=== PATIENT | female | born 1980 | race African-American/Black ===

== ENCOUNTER 2020-04-14 00:57 | Outpatient (CLI) | payer BC, SELFPAY ==
[2020-04-14 19:18] LABS: SARS-CoV-2 RNA PCR Negative
== END 2020-04-14 00:58 | disposition home or self-care (01) ==
LOC: ANHCOVIDDT 00:57
PROVIDERS: Visit Provider Obstetrics & Gynecology
DX: Z01.812 Encounter for preprocedural laboratory examination (principal); Z20.828 Contact with and (suspected) exposure to other viral communicable diseases
CPT/HCPCS: 87635; C9803; U0003

== ENCOUNTER → 2020-04-17 01:38 | Day surgery (SDC) | payer BC, SELFPAY ==
[2020-04-11 09:22] VITALS: BMI 28.9
--- NOTE | 2020-04-14 08:24 | PM.IMHP ---
H&P: HPI History of Present Illness Date/Time: 04/14/20 08:24 Chief complaint: ovarian cyst, pelvic pain Narrative: Cynthia Montoya is a 39 year old female with RLQ pain, Aleve does help. She has ovarian cyst which has not resolved with OCP and wants surgical removal. Review of Systems Review of Systems: All systems reviewed & are unremarkable except as noted in HPI and below PMFSH Past Medical History Medical History Ovarian cyst Surgical History Surgical History H/O breast augmentation History of bilateral tubal ligation History of bowel resection Previous section X3 Family History Family History Grandparent Carcinoma of colon Social History Social History Smoking status: Never smoker Alcohol intake: current Drinks per week: 3 Spiritual care concerns: No Meds Home Medications and Allergies Home Medications Medication Instructions Recorded Confirmed Type L norgest/e.estradiol-e.estrad 1 tablet PO DAILY 03/01/20 04/11/20 History 0.10 mg-20 mcg (84)/10 mcg(7) tabs,3mos biotin 1 mg capsule 1 mg PO DAILY 03/01/20 04/11/20 History melatonin 3 mg capsule 3 mg PO HS PRN 03/01/20 04/11/20 History topiramate 25 mg capsule,extended 25 mg PO DAILY 03/01/20 04/11/20 History release 24 hr Elderberry Gummy 1 ea PO DAILY 04/11/20 History ascorbic acid (vitamin C) [Vitamin 250 mg PO DAILY 04/11/20 04/11/20 History C] Allergies Allergy/AdvReac Type Severity Reaction Status Date / Time No Known Allergies Allergy Verified 04/11/20 09:23 Exam Const: General: no acute distress Resp: Auscultation: clear to auscultation bilaterally Cardio: Rate: regular rate Rhythm: regular rhythm GI: Inspection: non-distended GI Palp: Yes Soft to palpation and No Tenderness to palpation present (GI) : External Female Exam: normal external appearance Speculum Exam - Vagina: normal appearance of the vagina Speculum Exam - Cervix: normal appearance of the cervix Bimanual exam- vagina & uterus: uterine size normal, consistency normal, uterine shape normal, non-tender and no cervical motion tenderness Bimanual Exam- Adnexa, other: tender on the right Extrem: General: no edema Psych: Mental Status: mental status grossly normal Assessment and Plan Assessment and plan (1) Right ovarian cyst: Code(s): N83.201 - Unspecified ovarian cyst, right side Status: Acute Assessment and Plan: She signed consent after R/B/C/A discussed for L/S right ovarian cystectomy, possible right oophorectomy, possible laparotomy. She is aware of increased risk of needing larger incision as well as injury to surrounding organs due to h/o multiple abdominal surgeries on bowels including bowel resection prior to age 1. She wishes to proceed (2) Pelvic pain: Code(s): R10.2 - Pelvic and perineal pain Status: Acute
[2020-04-17] VITALS (9 sets, daily range): BP systolic 110–128; BP diastolic 55–77; PULSE 48–84; RESP 12–18; TEMP 36.7–36.8; O2SAT 96–100
[2020-04-17] MEDS: ACETAMINOPHEN 500 MG TABLET 1000 MG PO (10:20)
[2020-04-17] MEDS: LACTATED RINGERS 1,000 ML 30 ML IV CONT ×2 (10:38→13:24)
[2020-04-17] MEDS: KETOROLAC 15 MG/ML VIAL (*BKC) IV PUSH (10:39)
--- NOTE | 2020-04-17 11:09 | P.PNAN_ITS ---
Anes - Initial Pre Proc Eval Procedure: Operation Date: 04/17/20 12:00 Proposed Procedures p Laparoscopic Right Ovarian Cystectomy, Possible Right Oophorectomy, Possible Laparotomy - Shelley Anguiano MD Date/Time: 04/17/20 11:09 Surgeon: Shelley Anguiano MD Pre Op Diagnosis: ovarian cyst, pelvic pain Patient Data Age: 39 Gender: F Height: 5 ft 2 in Weight: 72.3 kg Last Vital Signs Temp 36.8 C 04/17/20 10:15 Pulse 66 04/17/20 10:15 Resp 16 04/17/20 10:15 BP 120/72 04/17/20 10:15 Pulse Ox 100 04/17/20 10:15 Allergies Allergy/AdvReac Type Severity Reaction Status Date / Time No Known Allergies Allergy Verified 04/17/20 10:13 Home Medications Medication Instructions Recorded Confirmed Type L norgest/e.estradiol-e.estrad 1 tablet PO DAILY 03/01/20 04/17/20 History 0.10 mg-20 mcg (84)/10 mcg(7) tabs,3mos biotin 1 mg capsule 1 mg PO DAILY 03/01/20 04/17/20 History melatonin 3 mg capsule 3 mg PO HS PRN 03/01/20 04/17/20 History topiramate 25 mg capsule,extended 25 mg PO DAILY 03/01/20 04/17/20 History release 24 hr Elderberry Gummy 1 ea PO DAILY 04/11/20 04/17/20 History ascorbic acid (vitamin C) [Vitamin 250 mg PO DAILY 04/11/20 04/17/20 History C] Patient hx anesthesia problems: none Family hx anesthesia problems: none PMFSH Past Medical History Medical History Anxiety Ovarian cyst Surgical History Surgical History H/O breast augmentation History of bilateral tubal ligation History of bowel resection Previous section X3 Family History Family History Grandparent Carcinoma of colon Social History Social History Smoking status: Never smoker Alcohol intake: current Drinks per week: 3 Spiritual care concerns: No Anes - Eval Final PreProcedure Day of Procedure 04/17/20 11:09 Patient weight: overweight Heart: regular rate and rhythm Lungs: clear to auscultation Airway: Mallampati scale class II Neurological: alert and oriented Last oral intake: >/= 8 hours ASA classification: II Emergent: no Anesthetic plan: proceed Anesthesia type and monitoring: general ETT and standard monitoring Informed Consent: The patient's anesthetic plan and its attendant risks and be nefits were discussed with the patient/family/POA. Questions were solicited and answers provided to the satisfaction of the patient/family/POA.
--- NOTE | 2020-04-17 11:30 | SUR.PREOP ---
Resting without needs or complaints.
--- NOTE | 2020-04-17 11:58 | WPDHPUPDATE1 ---
History and Physical Update Update Date/Time: 04/17/20 11:58 History and Physical has been reviewed, including an updated exam of the patient. There are NO changes in the patient's condition. Risks, benefits, and alternatives have been discussed and questions answered. Patient agrees to proceed with procedure.
--- NOTE | 2020-04-17 12:09 | P.OP_ITS ---
Procedure Note - Detailed Date of procedure: 04/17/20 Pre-op diagnosis: ovarian cyst, pelvic pain Post-op diagnosis: other (Pelvic pain, peritoneal inclusion cyst) Procedure performed: Diagnostic laparoscopy with lysis of adhesions Description of procedure: For the procedure she was taken to the operating room where general anesthesia was obtained. She was prepared and draped in the normal sterile fashion in dorsal lithotomy position. Marcaine was injected infraumbilically and a 5 mm skin incision was made in the infraumbilical fold with a scalpel. 5 mm non bladed trocar was then placed with the camera in the trocar under direct visualization into the peritoneal cavity. Insufflation was begun and she was placed in Trendelenburg. Inspection of the pelvis revealed findings as noted below. There were multiple dense adhesions involving the bowel. There were a few areas that looked more filmy so decision was made to proceed with lysis of adhesions in order to obtain better visualization. Another 5 mm trocar was placed in the right lower quadrant under direct visualization. First a laparoscopic scissor was used and then the Harmonic scalpel to remove adhesions between the loops of bowel in the anterior abdominal wall taking care to stay in areas that were filmy and able to be seen through. The uterus was adherent to the anterior abdominal wall. The left fallopian tube and ovary were both easily visualized and appeared to be normal. Extensive lysis of adhesions was done in the right adnexal area. There was a large pocket of serous fluid likely accounting for the adnexal cyst seen on imaging. The serous fluid was suctioned using the suction dielectric press operator. The right ovary was partially visualized. The visible portion did appear normal and the overall size was normal as well. Once I was convinced that she has no significant ovarian cyst the pelvis was copiously irrigated. All operative sites were noted to be hemostatic. The pneumoperitoneum was allowed to escape. Both trocars were removed. Both skin incisions were closed using 4 0 Monocryl in subcuticular fashion. She tolerated the procedure well. Sponge lap needle and instrument counts were correct x2. She was taken to the recovery room in stable condition. Anesthesia: EDVINA Surgeon: Shelley Anguiano MD Estimated blood loss (mL): 5 Drains: No Packing: No Pathology: none sent Complications: No immediate complications Condition: stable Disposition: PACU Findings: Normal left ovary, fallopian tubes, uterus; right ovary not visualized 100% but normal in size and the portion visible appeared normal; extensive adhesions of bowels to each other and to abdominal wall. Large pocket of serous fluid in right adnexa between adhesions. Appendix, liver, and gall bladder not visualized.
[2020-04-17] MEDS: BUPIVACAINE/EPINEPHRINE 0.5% 30 ML VIAL INFILTRATE (12:56)
== END | disposition home or self-care (01) ==
PROVIDERS: Visit Provider Obstetrics & Gynecology
PROC: (CPT 49320; principal; 2020-04-17 12:00)
DX: N83.201 Unspecified ovarian cyst, right side (principal); R10.2 Pelvic and perineal pain; K66.0 Peritoneal adhesions (postprocedural) (postinfection)
CPT/HCPCS: 58660; A9270; J0330; J1100; J1885; J2250; J2405; J2704; J2710; J3010; J7030; J7120

== ENCOUNTER → 2021-02-06 01:09 | Outpatient (CLI) | payer BC, SELFPAY ==
[2021-02-06 17:24] LABS: SARS-CoV-2 RNA PCR Negative
== END ==
PROVIDERS: Visit Provider Student in an Organized Health Care Education/Training Program
DX: Z01.812 Encounter for preprocedural laboratory examination (principal); Z20.822 Contact with and (suspected) exposure to COVID-19
CPT/HCPCS: C9803; U0003; U0005

== ENCOUNTER 2021-02-09 00:43 | Day surgery (SDC) | payer BC, SELFPAY ==
[2021-01-30 11:30] VITALS: BMI 29.2
--- NOTE | 2021-02-09 05:44 | PM.IMHP ---
H&P: HPI History of Present Illness Date/Time: 02/09/21 05:44 Patient is a 40 year old woman with a prior history of irregular menses and menorrhagia. She was started on combined OCPs for cycle regulation and has done well on pills. Patient, however, was diagnosed with left portal vein thrombosis and was advised to discontinue combined hormonal regulation. Alternative management options were discussed with patient, including progesterone only methods as well as surgical options, and patient would like to proceed with an endometrial ablation as next step in further management. She reports feeling well today without complaints. Chief Complaint: Irregular menses Menorrhagia Review of Systems Review of Systems: All systems reviewed & are unremarkable except as noted in HPI and below Constitutional: Constitutional: Reports as per HPI, Reports no additional constitutional complaints, Denies chills, Denies fever(s), Denies headache(s) and Denies night sweats Eyes: Eyes: Reports as per HPI and Reports no additional eye complaints ENT: Reports system reviewed and no additional complaints, except as documented, Reports as per HPI, Reports Normal hearing present and Denies headache(s) Cardiovascular: Cardiovascular: Reports as per HPI, Reports no additional cardiovascular complaints, Denies chest pain and Denies dyspnea Respiratory: Respiratory: Reports as per HPI, Reports no additional respiratory complaints, Denies cough and Denies dyspnea Gastrointestinal: Gastrointestinal: Reports as per HPI, Reports no additional gastrointestinal complaints, Denies abdominal pain, Denies change in bowel habits, Denies change in stool character, Denies nausea and Denies vomiting Genitourinary: Genitourinary: Reports no additional female genitourinary complaints, Reports as per HPI, Denies abnormal vaginal bleeding, Denies genital lesions, Denies hot flashes, Denies dyspareunia, Denies pelvic pain, Denies sexual dysfunction, Denies urinary incontinence, Denies vaginal discharge, Denies vaginal dryness and Denies vaginal odor Musculoskeletal: Musculoskeletal: Reports no additional musculoskeletal complaints and Reports as per HPI Integumentary/Breasts: Skin/Breast: Reports system reviewed and no additional complaints, except as docu, Reports as per HPI, Denies breast pain and Denies nipple discharge Neurologic: Reports system reviewed and no additional complaints, except as documented, Reports as per HPI, Reports Normal hearing present and Denies headache(s) Psychiatric: Psychiatric: Reports no additional psychiatric complaints, Reports as per HPI, Denies anxiety and Denies depression Endocrine: Endocrine: Reports no additional endocrine complaints and Reports as per HPI Hematologic/Lymphatic: Hematologic/Lymphatic: Reports no additional hematologic/lymphatic complaints and Reports as per HPI Allergic/Immunologic: Allergic/Immunologic: Reports no additional allergic/immunologic complaints and Reports as per HPI PMF Past Medical History Medical History Anxiety Ovarian cyst Portal vein thrombosis Thrombosis Surgical History Surgical History H/O breast augmentation History of bilateral tubal ligation History of bowel resection Previous section X3 S/P laparoscopic procedure Family History Family History Grandparent Carcinoma of colon Social History Social History Smoking status: Never smoker Alcohol intake: current Drinks per week: 3 Alcohol use details: 3/MONTH Substance use: never Substance use type: does not use Living arrangements: with family Additional living arrangements comments: CHILDREN Spiritual care concerns: No Meds Home Medications and Allergies Home Medications Medication Instructions
[2021-02-09 06:54] VITALS: BP 123/86; PULSE 67; RESP 18; TEMP 36.1; O2SAT 100
[2021-02-09] MEDS: LACTATED RINGERS 1,000 ML 30 ML IV CONT (07:00)
[2021-02-09] MEDS: ACETAMINOPHEN 500 MG TABLET 1000 MG PO (07:08)
--- NOTE | 2021-02-09 07:08 | WPDANESEPPF ---
Anes - Initial Pre Proc Eval Procedure: Operation Date: 02/09/21 07:30 Proposed Procedures p Hysteroscopy Dilation and Curettage With Johanne Ablation - Sachi Oliver MD Date/Time: 02/09/21 07:08 Surgeon: Sachi Oliver MD Pre Op Diagnosis: menorrhagia Patient Data Age: 40 Gender: F Height: 5 ft 2 in Weight: 72.25 kg Last Vital Signs Temp 97.0 F L 02/09/21 06:54 Pulse 67 02/09/21 06:54 Resp 18 02/09/21 06:54 BP 123/86 02/09/21 06:54 Pulse Ox 100 02/09/21 06:54 Allergies Allergy/AdvReac Type Severity Reaction Status Date / Time No Known Allergies Allergy Verified 02/09/21 06:57 Home Medications Medication Instructions Recorded Confirmed Type melatonin 3 mg capsule 3 mg PO HS PRN 03/01/20 01/30/21 History ibuprofen 600 mg PO Q6H PRN #60 tablet 04/17/20 01/30/21 Rx multivitamin with minerals 1 tablet PO DAILY 01/02/21 01/30/21 History drospirenone (contraceptive) 4 mg PO HS 01/30/21 01/30/21 History [Slynd] Patient hx anesthesia problems: none Family hx anesthesia problems: none PMFSH Past Medical History Medical History Anxiety Ovarian cyst Portal vein thrombosis Thrombosis Surgical History Surgical History H/O breast augmentation History of bilateral tubal ligation History of bowel resection Previous section X3 S/P laparoscopic procedure Family History Family History Grandparent Carcinoma of colon Social History Social History Smoking status: Never smoker Alcohol intake: current Drinks per week: 3 Alcohol use details: 3/MONTH Substance use: never Substance use type: does not use Living arrangements: with family Additional living arrangements comments: CHILDREN Spiritual care concerns: No Anes - Eval Final PreProcedure Day of Procedure 02/09/21 07:08 Patient weight: overweight Heart: regular rate and rhythm Lungs: clear to auscultation Airway: Mallampati scale class II Neurological: alert and oriented Last oral intake: >/= 8 hours ASA classification: II Emergent: no Anesthetic plan: proceed Anesthesia type and monitoring: general GIVS and standard monitoring Informed Consent: The patient's anesthetic plan and its attendant risks and benefits were discussed with the patient/family/POA. Questions were solicited and answers provided to the satisfaction of the patient/family/POA.
--- NOTE | 2021-02-09 07:27 | WPDHPUPDATE1 ---
History and Physical Update Update Date/Time: 02/09/21 07:27 History and Physical has been reviewed, including an updated exam of the patient. There are NO changes in the patient's condition. Risks, benefits, and alternatives have been discussed and questions answered. Patient agrees to proceed with procedure.
[2021-02-09] MEDS: KETOROLAC 30 MG/ML VIAL (*BKC) IV PUSH (08:02)
[2021-02-09 08:11] VITALS: BP 102/69; PULSE 63; RESP 14; O2SAT 100
[2021-02-09 08:30] VITALS: BP 93/54; PULSE 48; RESP 20
--- NOTE | 2021-02-09 08:45 | W.PM.PROC2 ---
Procedure Note - Detailed Date of Procedure 02/09/21 Pre-op Diagnosis Irregular menses Menorrhagia Post-op Diagnosis same Procedure Performed Hysteroscopy Dilation and curettage Endometrial ablation with Johanne Surgeon Sachi Oliver MD Anesthesia MAC Findings Normal appearing endometrial cavity, scant endometrial tissue, bilateral tubal ostia seen Hysteroscopic fluid: 675cc in/ 490 cc out Description of Procedure The patient was taken to the operating room where she self-transferred to the operating room table. She was placed in dorsal supine position. Anesthesia was administered and found to be adequate. The patient was repositioned in dorsal lithotomy position with the use of Bennie stirrups. She was prepped and draped in usual sterile fashion. A red rubber catheter was used to drain the bladder of 100 cc of clear urine. A bivalve speculum was inserted into the vagina. The cervix was well visualized. The anterior lip of the cervix was grasped with a single-tooth tenaculum. A paracervical block was performed with 1% plain lidocaine. 5 cc of lidocaine was administered on either side for a total of 10 cc. The uterus was then sounded to 8.5 cm. The cervix was serially dilated to accommodate a hysteroscope. The hysteroscope was introduced into the endometrial cavity. A general survey was performed. Endometrial cavity appeared clear with virtually no tissue seen. Bilateral tubal ostia were visualized. A few pictures were taken. The hysteroscope was removed. A small-size rigid curette was used to perform a curettage. All quadrants of the endometrial cavity were explored. A minimal amount of tissue was obtained and prepared to be sent to pathology for analysis. The Johanne endometrial ablation device was then opened on the sterile field. The appropriate settings were input on the hand-held device and the array was introduced into the endometrial cavity and deployed. The cervical balloon was insufflated. An integrity check was completed and passed by the Johanne console. After the integrity check was passed successfully, the ablation procedure started automatically and ran for the preset time of 120 seconds. After completion of the ablation procedure, the array was collapsed and the cervical balloon was desufflated. The device was removed. The hysteroscope was reintroduced into the endometrial cavity and cavity appeared de with some charred residue noted. Hysteroscope was removed. The tenaculum was removed from the anterior lip of the cervix. No bleeding was seen from the tenaculum puncture sites. The remainder of the vagina was cleansed and dried and the speculum was removed. The patient was cleansed and dried and taken out of the dorsal lithotomy position. She was awakened from anesthesia without difficulty and transferred to the recovery room in stable condition. The patient tolerated the procedure well. All sponge, lap, and instrument counts were correct at the end of the procedure. Estimated Blood Loss 5 IV Fluids 300 Urine Output 100 Drains No Packing No Pathology yes (endometrial curettings) Complications No immediate complications Condition stable Disposition same day
[2021-02-09] MEDS: fentaNYL CITRATE INJ (*CRX) 100 MCG/2 ML VIAL 25 MCG IV PUSH ×2 (08:48→08:51)
[2021-02-09 09:00] VITALS: BP 103/64; PULSE 50
[2021-02-09] MEDS: oxyCODONE HCL (*CRX) 5 MG TAB IR PO (09:14)
[2021-02-09 09:30] VITALS: BP 104/63; PULSE 47; RESP 20
[2021-02-09 10:00] VITALS: BP 102/64; PULSE 52; RESP 20
== END 2021-02-09 10:10 | disposition home or self-care (01) ==
PROVIDERS: Visit Provider Student in an Organized Health Care Education/Training Program
PROC: 0U5B8ZZ Destruction of Endometrium, Via Natural or Artificial Opening Endoscopic (ICD-10-PCS; CPT 58563; principal; 2021-02-09 07:30)
DX: N92.1 Excessive and frequent menstruation with irregular cycle (principal); N85.8 Other specified noninflammatory disorders of uterus; F41.9 Anxiety disorder, unspecified
CPT/HCPCS: 58563; 88305; A9270; C9803; J1885; J2250; J2405; J2704; J3010; J7030; J7120; U0003; U0005

== ENCOUNTER 2021-11-16 08:44 | Outpatient (CLI) | payer BC, SELFPAY ==
--- NOTE | ~2021-11-16 | MM_ITS ---
EXAMINATION: MM scrn nadege implant BI w joni HISTORY: Screening mammogram TECHNIQUE: Craniocaudal and mediolateral oblique 3-D tomosynthesis images with implant displacement a nd synthetic 2-D images were generated. Craniocaudal and mediolateral oblique views of the breasts wi thout implant displacement were obtained using full field digital mammography. CAD analysis was submi tted and interpreted. COMPARISON: No prior mammogram is available for comparison at this institution. BREAST PARENCHYMAL COMPOSITION: There are scattered areas of fibroglandular density. FINDINGS: There is a benign-appearing mass in the upper outer quadrant of the left breast, consistent with intramammary lymph node. There is no evidence of suspicious mass, calcification, or architectur al distortion to suggest malignancy in either breast. There has been no suspicious interval change. IMPRESSION: 1. No mammographic evidence of malignancy. 2. Recommend routine screening mammography in one year. BI-RADS Category 1: Negative Reviewed, dictated and finalized at location A.
== END 2021-11-16 08:45 | disposition home or self-care (01) ==
LOC: ANHIMG 08:46
PROVIDERS: PCP Family Medicine; Visit Provider Student in an Organized Health Care Education/Training Program
DX: Z12.31 Encounter for screening mammogram for malignant neoplasm of breast (principal)
CPT/HCPCS: 77063; 77067

== ENCOUNTER 2021-11-16 10:05 | Outpatient (CLI) | payer BC, SELFPAY ==
--- NOTE | ~2021-11-16 | CT_ITS ---
EXAMINATION: CT diagnostic chest wo con DATE: 11/16/2021 10:54 INDICATION: Pulmonary nodule TECHNIQUE: Computed tomography (CT) of the chest was performed without intravenous contrast. The dose -length product (DLP) was 170.77 mGy-cm. Automated exposure control and iterative reconstruction tech nique were employed. COMPARISON: None FINDINGS: There is a 3 mm nodule of the left upper lobe on image 32. There is a 3 mm subpleural nodul e of the left lower lobe on image 79. There is a 3 mm nodule of the right lower lobe on image 61. The re is no pleural effusion or pneumothorax. Mild dependent atelectasis is noted. No pathologically enl arged thoracic lymph nodes are identified. The heart size is normal. There are bilateral breast impla nts. The visualized osseous structures are unremarkable. IMPRESSION: 1. Scattered pulmonary nodules measuring up to 3 mm, likely old granulomatous disease. If the patient has no risk factors for malignancy, no further follow up is required. If there are risk factors for malignancy (i.e., history of smoking, asbestos or radiation exposure), consider followup CT in 12 mo nths. Reviewed, dictated and finalized at location B. IMPRESSION: 1. Scattered pulmonary nodules measuring up to 3 mm, likely old granulomatous d isease. If the patient has no risk factors for malignancy, no further follow up is required. If there are risk factors for malignancy (i.e., history of smoki ng, asbestos or radiation exposure), consider followup CT in 12 months.
== END 2021-11-16 10:06 | disposition home or self-care (01) ==
LOC: ANHIMG 10:07
PROVIDERS: PCP Family Medicine; Visit Provider Family Medicine
DX: R91.8 Other nonspecific abnormal finding of lung field (principal)
CPT/HCPCS: 71250

== ENCOUNTER 2021-11-16 10:09 | Outpatient (CLI) | payer BC, SELFPAY ==
--- NOTE | ~2021-11-16 | CT_ITS ---
EXAMINATION: CT abdomen w con EXAM DATE: 11/16/2021 10:55 INDICATION: Portal Vein Thrombosis TECHNIQUE: Spiral CT of the abdomen was performed following intravenous injection of 100 mL Omnipaque 350. Axial, coronal and sagittal images of the abdomen and pelvis were reviewed. The dose-length p roduct (DLP) for this examination was 231.75 mGy-cm. The exposure was tailored according to patient size (auto mA exposure control), and iterative reconstruction (ASIR) was used as additional dose redu ction technique. There is no prior study for comparison. FINDINGS: Diminutive appearing left liver lobe medial and lateral segmental portal veins with mildly heterogeneous liver enhancement to regions being supplied by these. No intraluminal filling defects, intraluminal thrombus on this examination. Appearance to the diminutive veins probably scarring, sequ alexys from prior portal venous thrombosis. There is a left liver lobe medial segmental mass with early peripheral nodular incomplete enhancement, a hemangioma measuring 1.8 cm. Spleen, adrenal glands, pancreas are unremarkable. Gallbladder is unremarkable. No biliary obstruct ion. There is no retroperitoneal or pelvic lymphadenopathy. The stomach and small bowel are unrema rkable. There is expected amount of colonic stool. No free intraperitoneal gas. The heart is nor mal in size. There are no pericardial or pleural effusions. The lung bases are unremarkable. The b ones are unremarkable. Breast implants. IMPRESSION: 1. Diminutive left liver lobe portal veins, probably sequela from prior portal venous thrombosis. 2. No hepatic or portal venous thrombosis on this exam. 3. Small liver hemangioma. Reviewed, dictated and finalized at location G.
[2021-11-16 10:41] LABS: Estimated Glomerular Filt Rate > 60
== END 2021-11-16 10:10 | disposition home or self-care (01) ==
PROVIDERS: PCP Family Medicine
DX: I81 Portal vein thrombosis (principal); D18.09 Hemangioma of other sites
CPT/HCPCS: 74160; 77063; 77067; Q9967

== ENCOUNTER 2021-12-10 10:17 | Outpatient (CLI) | payer BC, SELFPAY ==
[2021-12-10 11:00] LABS: Basophils Percent Auto 0.7 % (0.2-1.2); Eosinophils Absolute Auto 0.1 K/mm3 (0-0.3); Eosinophils Percent Auto 1.4 % (0-4.4); Hematocrit 39.5 % (37.0-47.0); Hemoglobin 12.3 g/dL (12.0-15.0); Lymphocytes Absolute Auto 1.35 K/mm3 (0.9-3.2); Lymphocytes Percent Auto 31.6 % (18.3-44.2); Mean Corpuscular HGB Conc 31.1 g/dl (32-36); Mean Corpuscular Volume 89.8 fl (80-100); Mean Platelet Volume 10.4 fl (7.4-10.4); Monocytes Absolute Auto 0.4 K/mm3 (0.1-0.6); Monocytes Percent Auto 8.4 % (2.6-8.5); Neutrophils Absolute Auto 2.5 K/mm3 (1.3-6.7); Neutrophils Percent Auto 57.9 % (45.5-73.1); Platelet Count Result 218 k/mm3 (150-375); Red Cell Distribution Width 14.1 % (11.5-14.5); White Blood Count 4.3 K/mm3 (4.5-10.0)
== END 2021-12-10 10:18 | disposition home or self-care (01) ==
LOC: ANHSURGERY 10:21
PROVIDERS: PCP Family Medicine; Visit Provider Student in an Organized Health Care Education/Training Program
DX: Z01.818 Encounter for other preprocedural examination (principal); R10.2 Pelvic and perineal pain
CPT/HCPCS: 36415; 85025; 86850; 86900; 86901

== ENCOUNTER 2021-12-14 11:35 | Inpatient (IN) | payer BC, SELFPAY ==
[2021-12-06 14:19] VITALS: BMI 27.6
--- NOTE | 2021-12-06 14:31 | PC.NURSE ---
Report to the Outpatient Waiting Room, entrance under the green pavilion located off [facility], at time 6:00 on date 12/14/21. OR Time: 7:30. - You and your visitor will be asked a series of questions to screen for COVID 19 for your protection. - A mask is required within the hospital. One visitor will be allowed to accompany the patient into the hospital. Patients visitor will be instructed to remain with patient at all times or leave the building. We will allow the visitor to come back to the postoperative area when patient is ready. Preoperative COVID Testing Requirements: TO BRING COPY OF CARD No COVID Test needed if: (proof is required; if not received patient will have Rapid Test prior to entry) - Patient has received COVID Vaccine at least 14 days prior to procedure date or - Patient has positive COVID test result within last 90 days of surgery date. COVID Test needed if above criteria is not met Patients may have clear liquids (water, carbonated beverages, clear teas, apple juice) until 3 hours prior to surgery (4:30) with a maximum of 20 ounces. - No food from midnight until time of surgery Take the following medications with a SIP of water the morning of surgery: PAIN PILL (IF NEEDED) Medications to discontinue per physician: VITAMINS/SUPPLEMENTS Date to take last dose: 12/10/[address] BLACKWELL Please no make-up, nail amharic, hairspray, perfume, deodorant, or body powder the day of surgery. No jewelry (including any body piercings) or valuables the day of surgery, leave them at home. Please take a shower or bath the night before, or the morning of, surgery with an antibacterial soap. Wear comfortable, loose fitting clothing. - Jewelry must be removed prior to entering the operating room. Rings and piercings that are not removed may be cut off. - The hospital will not accept responsibility for valuables. - Please leave all valuables, including medications, at home the day of surgery. If you are going home after surgery, a licensed drive away driver must drive you home. - NO public transportation without another adult. - We recommend that an adult stay with you for 24 hours following discharge. - We also recommend that you do not drive, make important decision, drink alcoholic beverages, or take any drugs that were not prescribed by your health care provider for at least 24 hours after your discharge time. Follow any additional instructions given to you from your surgeon. Telephone instructions given to MATTEO PALOMARES and asked if any additional questions and then verbalized understanding. Patient advised to call surgeon office or pre surgery nurse liaison [phone] if any additional questions.
--- NOTE | 2021-12-13 13:43 | WPDANESEPPF ---
Anes - Initial Pre Proc Eval Procedure: Operation Date: 12/14/21 07:30 Proposed Procedures p Total Abdominal Hysterectomy, Bilateral Salpingectomy with Left Oophorectomy, and Possible Right Oophorectomy - Sachi Oliver MD Date/Time: 12/13/21 13:43 Surgeon: Sachi Oliver MD Pre Op Diagnosis: pelvic pain Patient Data Age: 41 Gender: F Height: 1.57 m Weight: 68.49 kg Allergies Allergy/AdvReac Type Severity Reaction Status Date / Time amoxicillin Allergy Unknown Unknown Verified 12/06/21 14:17 Home Medications Medication Instructions Recorded Confirmed Type melatonin 3 mg capsule 3 mg PO HS PRN 03/01/20 12/06/21 History multivitamin with minerals 1 tablet PO DAILY 01/02/21 12/06/21 History acetaminophen 300 mg-codeine 30 mg 1 tablet PO Q6H PRN #60 tablet 10/29/21 12/06/21 Rx tablet hydrocodone 5 mg-acetaminophen 325 1 tablet PO Q8H PRN #20 tablet 10/31/21 12/06/21 Rx mg tablet Patient hx anesthesia problems: none Family hx anesthesia problems: none Results Review: All pre-operative results and documents have been reviewed as part of the pre-operative evaluation. REPLACED BY [facility] Past Medical History Medical History Anxiety History of miscarriage x1 Ovarian cyst Portal vein thrombosis Thrombosis Surgical History Surgical History H/O breast augmentation History of bilateral tubal ligation History of bowel resection History of endometrial ablation Previous section X3 S/P laparoscopic procedure Family History Family History Grandparent Carcinoma of colon Social History Social History Smoking status: Never smoker Alcohol intake: current Drinks per week: 3 Alcohol use details: 3/MONTH Substance use: never Substance use type: does not use Living arrangements: with family Additional living arrangements comments: CHILDREN Spiritual care concerns: No Anes - Eval Final PreProcedure Day of Procedure 12/13/21 13:43 Patient weight: overweight Heart: regular rate and rhythm Lungs: clear to auscultation and normal air movement Airway: Mallampati scale class II Neurological: alert and oriented Last oral intake: >/= 8 hours ASA classification: II Emergent: no Anesthetic plan: proceed Anesthesia type and monitoring: general ETT and standard monitoring Results Review: All pre-operative results and documents have been reviewed as part of the pre-operative evaluation. Informed Consent: The patient's anesthetic plan and its attendant risks and benefits were discussed with the patient/family/POA. Questions were solicited and answers provided to the satisfaction of the patient/family/POA.
--- NOTE | 2021-12-13 14:09 | PM.IMHP ---
H&P: HPI History of Present Illness Date/Time: 12/13/21 14:09 Patient is a 41yo woman with long history of severe pelvic pain. Patient s/p ablation in 01/2021. Since procedure, patient reports development of severe pelvic pain and cramping. Pain was initially cyclic near time of menses, however, has since become more frequent throughout the month. Pain is described as extreme and feels like 'knives stabbing me in the uterus. She requires pain medication daily in order to perform routine daily activities. Patient is s/p BTL and desires definitive surgical management for the treatment of severe pelvic pain. In general, patient doing well today. Chief Complaint: Pelvic pain Post ablation tubal syndrome Review of Systems Review of Systems: All systems reviewed & are unremarkable except as noted in HPI and below Constitutional: Constitutional: Reports as per HPI, Reports no additional constitutional complaints, Denies chills, Denies fever(s), Denies headache(s) and Denies night sweats Eyes: Eyes: Reports as per HPI and Reports no additional eye complaints ENT: Reports system reviewed and no additional complaints, except as documented, Reports as per HPI, Reports Normal hearing present and Denies headache(s) Cardiovascular: Cardiovascular: Reports as per HPI, Reports no additional cardiovascular complaints, Denies chest pain and Denies dyspnea Respiratory: Respiratory: Reports as per HPI, Reports no additional respiratory complaints, Denies cough and Denies dyspnea Gastrointestinal: Gastrointestinal: Reports as per HPI, Reports no additional gastrointestinal complaints, Denies abdominal pain, Denies change in bowel habits, Denies change in stool character, Denies nausea and Denies vomiting Genitourinary: Genitourinary: Reports no additional female genitourinary complaints, Reports as per HPI, Denies abnormal vaginal bleeding, Denies genital lesions, Denies hot flashes, Denies dyspareunia, Reports pelvic pain, Denies sexual dysfunction, Denies urinary incontinence, Denies vaginal discharge, Denies vaginal dryness and Denies vaginal odor Musculoskeletal: Musculoskeletal: Reports no additional musculoskeletal complaints and Reports as per HPI Integumentary/Breasts: Skin/Breast: Reports system reviewed and no additional complaints, except as docu, Reports as per HPI, Denies breast pain and Denies nipple discharge Neurologic: Reports system reviewed and no additional complaints, except as documented, Reports as per HPI, Reports Normal hearing present and Denies headache(s) Psychiatric: Psychiatric: Reports no additional psychiatric complaints, Reports as per HPI, Denies anxiety and Denies depression Endocrine: Endocrine: Reports no additional endocrine complaints and Reports as per HPI Hematologic/Lymphatic: Hematologic/Lymphatic: Reports no additional hematologic/lymphatic complaints and Reports as per HPI Allergic/Immunologic: Allergic/Immunologic: Reports no additional allergic/immunologic complaints and Reports as per HPI PMFSH Past Medical History Medical History Anxiety History of miscarriage x1 Ovarian cyst Portal vein thrombosis Thrombosis Surgical History Surgical History H/O breast augmentation History of bilateral tubal ligation History of bowel resection History of endometrial ablation Previous section X3 S/P laparoscopic procedure Family History Family History Grandparent Carcinoma of colon Social History Social History Smoking status: Never smoker Alcohol intake: current Drinks per week: 3 Alcohol use details: 3/MONTH Substance use: never Substance use type: does not use Additional living arrangements comments: CHILDREN Spiritual care concerns: No Meds Home Medications an
[2021-12-14] VITALS (12 sets, daily range): BP systolic 102–136; BP diastolic 53–84; PULSE 48–78; RESP 12–20; TEMP 36–36.8; O2SAT 100; BMI 27.6
[2021-12-14] MEDS: ACETAMINOPHEN 500 MG TABLET 1000 MG PO (07:15)
[2021-12-14] MEDS: KETOROLAC 15 MG/ML VIAL (*BKC) IV PUSH (07:15)
[2021-12-14] MEDS: LACTATED RINGERS 1,000 ML 30 ML IV CONT ×3 (07:15→13:44)
--- NOTE | 2021-12-14 07:18 | WPDHPUPDATE1 ---
History and Physical Update Update Date/Time: 12/14/21 07:18 History and Physical has been reviewed, including an updated exam of the patient. There are NO changes in the patient's condition. Risks, benefits, and alternatives have been discussed and questions answered. Patient agrees to proceed with procedure.
[2021-12-14] MEDS: ceFAZolin 2 GM/D5W 50 ML 2 GM/50 ML BAG IVPB (07:33)
--- NOTE | 2021-12-14 11:26 | WPDURCON ---
Assessment and Plan Assessment and plan (1) Pelvic pain: Code(s): R10.2 - Pelvic and perineal pain Status: Acute Assessment and Plan: Plan for closure of cystotomy Urology Consult Note HPI Date Seen: 12/14/21 Requesting Physician: Sachi Oliver MD Primary Care Provider: Anderson Fonseca MD Consult Narrative Reason for consult: Intraoperative consult for cystotomy Narrative: Cynthia Montoya is a 41 year old female who was undergoing an open hysterectomy with possible bilateral salpingo oophorectomy. There was significant amount of pelvic adhesions. It was noted that she had a cystotomy and we are asked to assist in closure of this. Review of Systems Review of Systems: All systems reviewed & are unremarkable except as noted in HPI and below PMFSH Past Medical History Medical History Anxiety History of miscarriage x1 Ovarian cyst Portal vein thrombosis Thrombosis Surgical History Surgical History H/O breast augmentation History of bilateral tubal ligation History of bowel resection History of endometrial ablation Previous section X3 S/P laparoscopic procedure Family History Family History Grandparent Carcinoma of colon Social History Social History Smoking status: Never smoker Alcohol intake: current Drinks per week: 3 Alcohol use details: 3/MONTH Substance use: never Substance use type: does not use Living arrangements: with family Additional living arrangements comments: CHILDREN Spiritual care concerns: No Meds Home Medications and Allergies Home Medications Medication Instructions Recorded Confirmed Type melatonin 3 mg capsule 3 mg PO HS PRN 03/01/20 12/06/21 History multivitamin with minerals 1 tablet PO DAILY 01/02/21 12/06/21 History acetaminophen 300 mg-codeine 30 mg 1 tablet PO Q6H PRN #60 tablet 10/29/21 12/06/21 Rx tablet hydrocodone 5 mg-acetaminophen 325 1 tablet PO Q8H PRN #20 tablet 10/31/21 12/06/21 Rx mg tablet Allergies Allergy/AdvReac Type Severity Reaction Status Date / Time amoxicillin Allergy Unknown Unknown Verified 12/06/21 14:17 Vital Signs Vital Signs - 24 hr 12/14/21 07:46 Temperature 36.4 C Pulse Rate 64 Respiratory Rate 14 Blood Pressure 136/82 Pulse Oximetry 100
--- NOTE | 2021-12-14 11:31 | W.PM.PROC2 ---
Procedure Note - Detailed Date of Procedure 12/14/21 Pre-op Diagnosis pelvic pain, cystotomy iatrogenic Post-op Diagnosis Same Procedure Performed Closure of cystotomy Surgeon Kenyon Garcia MD Anesthesia General Description of Procedure Patient is undergoing an open hysterectomy. She has dense pelvic adhesions he was noted to have a cystotomy. It is located at the dome of the bladder and measured approximately 1-1/2-2 cm. We performed closure of this using 2-0 Vicryl in a running fashion with an imbrication of the outer layer. There was good approximation of mucosa and muscular layer. The bladder was filled with methylene blue colored saline to 300 cc without any evidence of extravasation. At this point time Dr. Oliver proceeded to close. She will dictate her portion of the procedure. Patient will require a Downing catheter for 7-10 days and will obtain a catheter cystogram prior to its removal Packing No Pathology None sent Complications No immediate complications Condition Stable Disposition PACU
[2021-12-14] MEDS: ceFAZolin SODIUM 1 GM VIAL 2 GM IV PUSH (11:50)
--- NOTE | 2021-12-14 12:16 | W.PM.PROC2 ---
Procedure Note - Detailed Date of Procedure 12/14/21 Pre-op Diagnosis Pelvic pain Post-op Diagnosis Same Procedure Performed Total abdominal hysterectomy Left salpingo-oophorectomy Repair of cystotomy Surgeon Sachi Oliver MD Hoisting Engine Operator Dr. Serg Mcfarland Chance Anesthesia General Findings Extensive, thick scar tissue and adhesions Bladder densely adherent to anterior surface of uterus Small bowel adhesions to posterior surface of uterus and left pelvic side wall Small, relatively normal appearing uterus Normal appearing left ovary and fallopian tube Small right ovary Right fallopian tube not visualized Approx. 2 cm incidental cystotomy Description of Procedure The patient was taken to the operating room where she self-transferred to the operating room table. She was placed in the dorsal supine position. General anesthesia was administered and found to be adequate. The patient was prepped and draped in the usual sterile fashion. A Pfannenstiel skin incision was made with a scalpel and carried through to the underlying layer of fascia with the Bovie. The fascia was incised in the midline and the incision was extended laterally with the use of forceps and Rushing scissors. The inferior aspect of the fascial incision was grasped with Serina clamps, elevated, and the underlying rectus muscles were dissected off with Rushing scissors. Attention was turned to the superior aspect of the fascial incision, which in a similar manner was grasped with Serina clamps, elevated, and the underlying rectus muscles also dissected off with Rushing scissors. The peritoneum was identified, grasped with Allis clamps, and entered carefully with a Mariah clamp. The underlying structures were palpated with fingers. Adhesions inferior to entry site were palpated. The peritoneal incision was extended superiorly to enhance visualization. Gentle stretching of the peritoneum was performed also enhancing visualization. The uterus was identified. Extensive, dense adhesions were noted along the anterior surface of the uterus. A portion of the small bowel was noted to be adherent to the posterior surface of uterus as well as left pelvic side wall. Two lap pads were placed laterally beneath the rectus muscle bellies and a Christiano retractor was placed carefully to avoid the bowel. An additional lap pad was placed in the abdomen to displace some of the bowel cephalad. The uterus was grasped with a single tooth tenaculum and elevated. The small bowel adhesions to the posterior surface of the uterus were thin and transected with bovie. The adhesions to the left side wall were also carefully dissected with bovie, freeing them completely from supervising fire marshal structures. Two additional lap pads were then used to displace the rest of the bowel laterally. The left ovary and remnant of fallopian tube were visualized as were the rest of the structures on the left side. The structures on the right side, however, were difficult to identify due to the anterior adhesions overlying the uterus. The left round ligament was identified, grasped with [place] clamp, and suture ligated. The round ligament was transected with Bovie. Dissection of the anterior leaf of the broad ligament was started towards the midline, however, thick, dense adhesions were encountered. Attention was then turned to the patient's right side, however, the round ligament was still not identifiable. Decision made to continue to dissect adhesions off of the anterior uterus from the left side. Dissection was performed with the use of forceps and Metzenbaum scissors as well as a sponge stick. During dissection, an incidental cystotomy was made and immediately recognized. An intraoperative urology consult was requested. Dr. Copeland responded to request and arrived a few minutes later. He advised to proceed with hysterectomy and stated that Dr. Garcia would return to repair cystotomy afterwards. Interestingly, the cystotomy allowed better visualization of
[2021-12-14] MEDS: fentaNYL CITRATE INJ (*CRX) 100 MCG/2 ML VIAL 25 MCG IV PUSH ×5 (12:30→13:05)
[2021-12-14] MEDS: HYDROmorphone HCL INJ (*CRX) 1 MG/ML SYR 0.5 MG IV PUSH ×4 (13:33→14:07)
--- NOTE | 2021-12-14 14:10 | PC.NURSE ---
This patient, Cynthia Montoya, was received from PACU via bed on 12/14/21 at 1410. Patient/family oriented to unit policies and routines
[2021-12-14] MEDS: DEXTROSE 5%/0.45% SOD CHL 1,000 ML 125 ML IV CONT (14:44)
--- NOTE | 2021-12-14 16:51 | PM.GYNPNOP ---
HUMAN RESOURCES ASSISTANT - A/P Assessment and plan (1) S/P total abdominal hysterectomy: Code(s): Z90.710 - Acquired absence of both cervix and uterus Status: Acute Assessment and Plan: Doing well Surgery discussed in great detail with patient Explained to patient findings of procedure as well as incidental cystotomy and inability to perform right salpingectomy Discussed postoperative plan and recovery Catheter to remain in place, will f/u with urology as outpatient in 7-10 days Patient also aware that we will await return of bowel function and advance diet very slowly as there was manipulation of bowel Will continue IV pain meds until tolerating PO diet and then switch to PO Venodynes to remain in place while in bed All questions and concerns addressed Photographs also shown to patient Postoperative Procedures: Procedures Operation Date: 12/14/21 07:30 Actual Procedure Side Surgeon p Total Abdominal Hysterectomy with Left Salpingoophorectomy Not Applicable Sachi Oliver MD s Repair of Cystotomy Kenyon Garcia MD Time Spent With Patient Time: Total time spent is greater than 50% in coordination of care (as documented) at patient's floor/unit and/or counseling patient: Time with patient: 15 - 25 minutes HUMAN RESOURCES ASSISTANT- PN:Subj Post-Op Subjective Date/time seen: 12/14/21 16:51 Patient seen at bedside. Doing well. Pain reasonably controlled. Currently denies any headache, chest pain, SOB, N/V. HUMAN RESOURCES ASSISTANT - PN: Obj Data Vital Signs Vital Signs: Vital Signs - 24 hr 12/14/21 07:46 12/14/21 12:05 12/14/21 12:20 Temperature 36.4 C 36.0 C L Pulse Rate 64 65 54 L Respiratory Rate 14 16 20 Blood Pressure 136/82 113/65 102/53 L Pulse Oximetry 100 100 100 12/14/21 12:35 12/14/21 12:50 12/14/21 13:05 Temperature Pulse Rate 48 L 48 L 54 L Respiratory Rate 16 16 14 Blood Pressure 109/64 120/78 115/70 Pulse Oximetry 100 100 100 12/14/21 13:22 12/14/21 13:40 12/14/21 13:55 Temperature Pulse Rate 53 L 58 L 70 Respiratory Rate 16 16 12 Blood Pressure 119/75 119/79 107/75 Pulse Oximetry 100 100 100 12/14/21 14:15 Temperature 36.6 C Pulse Rate 57 L Respiratory Rate 16 Blood Pressure 120/69 Pulse Oximetry 100 Intake/Output Intake/Output: Intake & Output 12/11/21 12/12/21 12/13/21 12/14/21 23:59 23:59 23:59 23:59 Intake Total 4350 Output Total 110 Balance 4240 Meds/Results Medications: Active Medications Generic Name Dose Route Start Last Admin Trade Name Freq PRN Reason Stop Dose Admin Docusate Sodium 100 mg 12/14/21 17:00 Docusate Sodium 100 Mg Capsule PO BID JORDIN Acetaminophen 1,000 mg in 100 mls @ 400 mls/hr 12/14/21 12:00 12/14/21 14:44 Ofirmev 1,000 Mg Ivpb IVPB 12/15/21 11:59 400 mls/hr Q6H JORDIN Administration Dextrose/Sodium Chloride 1,000 mls @ 125 mls/hr 12/14/21 14:09 12/14/21 14:44 Dextrose 5% Sodium Chloride 0.45% IV CONT 125 mls/hr .Q8H JORDIN Administration Ibuprofen 800 mg in 200 mls @ 387.513 mls/hr 12/14/21 18:00 Caldolor 800 Mg/200 Ml IVPB Q6HR JORDIN Morphine Sulfate 4 mg 12/14/21 14:09 Morphine Sulfate (*Crx) 4 Mg/Ml Inj IV PUSH Q4H PRN Pain Rated 7-10 Nitrofurantoin Macrocrystals 100 mg 12/15/21 09:00 Nitrofurantoin Monohyd Macrocr 100 Mg Cap PO DAILY [facility] Ondansetron HCl 4 mg 12/14/21 14:09 Ondansetron Inj 4 Mg/2 Ml Vial IV PUSH Q6H PRN Nausea Oxybutynin Chloride 5 mg 12/15/21 09:00 Oxybutynin Chloride 5 Mg Tablet PO BID JORDIN Simethicone 80 mg 12/14/21 14:09 Simethicone 80 Mg Tab.Chew PO Q2H PRN Gas
[2021-12-14] MEDS: IBUPROFEN IV 800 MG/200 ML 800 MG/200 ML BAG 387.51 MG IVPB ×2 (17:28→23:28)
[2021-12-14] MEDS: DOCUSATE SODIUM 100 MG CAPSULE PO (17:28)
[2021-12-14] MEDS: MORPHINE SULFATE (*CRX) 4 MG/ML INJ IV PUSH (18:55)
[2021-12-14] MEDS: ONDANSETRON INJ 4 MG/2 ML VIAL IV PUSH (19:02)
[2021-12-15] MEDS: MORPHINE SULFATE (*CRX) 4 MG/ML INJ IV PUSH ×2 (00:45→11:13)
[2021-12-15] MEDS: ONDANSETRON INJ 4 MG/2 ML VIAL IV PUSH ×2 (00:45→17:36)
[2021-12-15] MEDS: DEXTROSE 5%/0.45% SOD CHL 1,000 ML 125 ML IV CONT ×2 (00:46→11:13)
[2021-12-15 05:15] VITALS: BP 98/62; PULSE 64; RESP 18; TEMP 36.4; O2SAT 100
[2021-12-15] MEDS: IBUPROFEN IV 800 MG/200 ML 800 MG/200 ML BAG 387.51 MG IVPB (05:16)
[2021-12-15 05:33] LABS: Basophils Percent Auto 0.2 % (0.2-1.2); Hematocrit 28.9 % (37.0-47.0); Immature Granulocyte Absolute 0.05 K/mm3 (0.00-0.031); Immature Granulocyte Percent A 0.4 % (0-0.5); Lymphocytes Absolute Auto 1.15 K/mm3 (0.9-3.2); Lymphocytes Percent Auto 9.4 % (18.3-44.2); Mean Corpuscular HGB Conc 31.1 g/dl (32-36); Mean Corpuscular Volume 89.8 fl (80-100); Mean Platelet Volume 10.5 fl (7.4-10.4); Monocytes Absolute Auto 0.9 K/mm3 (0.1-0.6); Neutrophils Absolute Auto 10.2 K/mm3 (1.3-6.7); Platelet Count Result 176 k/mm3 (150-375); Red Blood Count 3.22 M/mm3 (4.2-5.4); Red Cell Distribution Width 14.2 % (11.5-14.5); White Blood Count 12.3 K/mm3 (4.5-10.0)
[2021-12-15 05:40] LABS: Anion Gap 2 mmol/L (8-16); Blood Urea Nitrogen 7 mg/dL (7-17); Calcium 7.7 mg/dL (8.4-10.2); Carbon Dioxide 25 mmol/L (22-30); Chloride 109 mmol/L (98-107); Estimated CRCL calculation 82 ml/min; Estimated Glomerular Filt Rate > 60; Glucose 124 mg/dL (65-110); Sodium 136 mmol/L (137-145)
--- NOTE | 2021-12-15 07:19 | P.PNAN_ITS ---
Anes - Prog Note Post-Op Date/Time: 12/15/21 07:19 Cardiovascular status: normal Respiratory status: normal Airway patency: baseline Mental status: baseline Post-Op hydration status: normal Vital Signs: Last Vital Signs Temp 97.6 F 12/15/21 05:15 Pulse 64 12/15/21 05:15 Resp 18 12/15/21 05:15 BP 98/62 L 12/15/21 05:15 Pulse Ox 100 12/15/21 05:15 Pain Score (VAS): 09/03 I/O: Intake & Output 12/14/21 12/14/21 12/15/21 15:59 23:59 07:59 Intake Total 4450 1900 100 Output Total 110 1000 1450 Balance 4340 900 -1350 Laboratory Tests 12/15/21 05:19 12/15/21 05:19 12/15/21 12/15/21 05:19 05:19 WBC 12.3 H RBC 3.22 L Hgb 9.0 L D Hct 28.9 L MCV 89.8 MCH 28.0 MCHC 31.1 L RDW 14.2 Plt Count 176 MPV 10.5 H Immature Gran % (Auto) 0.4 Neut % (Auto) 83.0 H Lymph % (Auto) 9.4 L [place] % (Auto) 7.0 Eos % (Auto) 0.0 Baso % (Auto) 0.2 Lymph # (Auto) 1.15 [place] # (Auto) 0.9 H Eos # (Auto) 0.0 Baso # (Auto) 0.0 Abs Immat Gran (auto) 0.05 H Absolute Neuts (auto) 10.2 H Absolute Nucleated RBC 0.0 Nucleated RBC % 0.0 Sodium 136 L Potassium 4.0 Chloride 109 H Carbon Dioxide 25 Anion Gap 2 L BUN 7 Creatinine 0.70 Estim Creat Clear Calc 82 Estimated GFR > 60 Glucose 124 H Calcium 7.7 L Post-procedural complaints: none Patient Feedback: Patient satisfied with anesthetic care.
[2021-12-15 08:00] VITALS: BP 111/64; PULSE 62; PULSE 64; RESP 18; RESP 20; TEMP 36.6; O2SAT 100
--- NOTE | 2021-12-15 08:32 | WPDANESPN ---
Anes - Prog Note Post-Op Date/Time: 12/15/21 08:32 Cardiovascular status: normal Respiratory status: normal Airway patency: baseline Mental status: baseline Post-Op hydration status: normal Vital Signs: Last Vital Signs Temp 36.4 C 12/15/21 05:15 Pulse 64 12/15/21 05:15 Resp 18 12/15/21 05:15 BP 98/62 L 12/15/21 05:15 Pulse Ox 100 12/15/21 05:15 Pain Score (VAS): 10 I/O: Intake & Output 12/14/21 12/15/21 12/15/21 23:59 07:59 15:59 Intake Total 1900 100 Output Total 1000 1450 Balance 900 -1350 Laboratory Tests 12/15/21 05:19 12/15/21 05:19 12/15/21 12/15/21 05:19 05:19 WBC 12.3 H RBC 3.22 L Hgb 9.0 L D Hct 28.9 L MCV 89.8 MCH 28.0 MCHC 31.1 L RDW 14.2 Plt Count 176 MPV 10.5 H Immature Gran % (Auto) 0.4 Neut % (Auto) 83.0 H Lymph % (Auto) 9.4 L [place] % (Auto) 7.0 Eos % (Auto) 0.0 Baso % (Auto) 0.2 Lymph # (Auto) 1.15 [place] # (Auto) 0.9 H Eos # (Auto) 0.0 Baso # (Auto) 0.0 Abs Immat Gran (auto) 0.05 H Absolute Neuts (auto) 10.2 H Absolute Nucleated RBC 0.0 Nucleated RBC % 0.0 Sodium 136 L Potassium 4.0 Chloride 109 H Carbon Dioxide 25 Anion Gap 2 L BUN 7 Creatinine 0.70 Estim Creat Clear Calc 82 Estimated GFR > 60 Glucose 124 H Calcium 7.7 L Post-procedural complaints: none Patient Feedback: Patient satisfied with anesthetic care.
[2021-12-15] MEDS: SIMETHICONE 80 MG TAB.CHEW PO (08:48)
[2021-12-15] MEDS: OXYBUTYNIN CHLORIDE 5 MG TABLET PO ×2 (08:48→17:21)
[2021-12-15] MEDS: NITROFURANTOIN MONOHYD MACROCR 100 MG CAP PO (08:48)
[2021-12-15] MEDS: DOCUSATE SODIUM 100 MG CAPSULE PO ×2 (08:55→17:20)
--- NOTE | 2021-12-15 10:11 | PM.GYNPNOP ---
INSURANCE CLAIMS ASSISTANT - A/P Assessment and plan (1) S/P total abdominal hysterectomy: Code(s): Z90.710 - Acquired absence of both cervix and uterus Status: Acute Assessment and Plan: POD1 s/p ZACKARY, lysis of adhesions, repair of cystotomy. Continue clear liquids until flatus. If nausea improved then will try oral pain medication. Encourage ambulation. Postoperative Procedures: Procedures Operation Date: 12/14/21 07:30 Actual Procedure Side Surgeon p Total Abdominal Hysterectomy with Left Salpingoophorectomy Not Applicable Sachi Oliver MD s Repair of Cystotomy Kenyon Garcia MD Time Spent With Patient Time: Total time spent is greater than 50% in coordination of care (as documented) at patient's floor/unit and/or counseling patient: Time with patient: less than 15 minutes INSURANCE CLAIMS ASSISTANT- PN:Subj Post-Op Subjective Date/time seen: 12/15/21 10:11 She reports nausea. No emesis with clear liquids. She has sat up in chair. No flatus. No leg pain or chest pain. She does feel intestinal rumbling. Exam Const: General: comfortable and no acute distress Eyes: General: appearance normal, both eyes and all related structures Resp: Effort & Inspection: normal respiratory effort Auscultation: clear to auscultation bilaterally Cardio: Rate: regular rate Rhythm: regular rhythm GI: Inspection: normal to inspection Other: dressing clean dry and intact bowel sounds present but hypoactive appropriate tenderness Extrem: General: normal to inspection Other: nontender no edema INSURANCE CLAIMS ASSISTANT - PN: Obj Data Vital Signs Vital Signs: Vital Signs - 24 hr 12/14/21 12:05 12/14/21 12:20 12/14/21 12:35 Temperature 96.8 F L Pulse Rate 65 54 L 48 L Respiratory Rate 16 20 16 Blood Pressure 113/65 102/53 L 109/64 Pulse Oximetry 100 100 100 12/14/21 12:50 12/14/21 13:05 12/14/21 13:22 Temperature Pulse Rate 48 L 54 L 53 L Respiratory Rate 16 14 16 Blood Pressure 120/78 115/70 119/75 Pulse Oximetry 100 100 100 12/14/21 13:40 12/14/21 13:55 12/14/21 14:15 Temperature 97.8 F Pulse Rate 58 L 70 57 L Respiratory Rate 16 12 16 Blood Pressure 119/79 107/75 120/69 Pulse Oximetry 100 100 100 12/14/21 20:00 12/14/21 23:50 12/15/21 05:15 Temperature 98.3 F 97.6 F 97.6 F Pulse Rate 78 69 64 Respiratory Rate 18 18 18 Blood Pressure 117/84 122/78 98/62 L Pulse Oximetry 100 100 100 Intake/Output Intake/Output: Intake & Output 12/12/21 12/13/21 12/14/21 12/15/21 23:59 23:59 23:59 23:59 Intake Total 6350 200 Output Total 1110 1450 Balance 5240 -1250 Meds/Results Medications: Active Medications Generic Name Dose Route Start Last Admin Trade Name Freq PRN Reason Stop Dose Admin Docusate Sodium 100 mg 12/14/21 17:00 12/14/21 17:28 Docusate Sodium 100 Mg Capsule PO 100 mg BID JORDIN Administration Acetaminophen 1,000 mg in 100 mls @ 400 mls/hr 12/14/21 12:00 12/15/21 08:47 Ofirmev 1,000 Mg Ivpb IVPB 12/15/21 11:59 400 mls/hr Q6H JORDIN Administration Dextrose/Sodium Chloride 1,000 mls @ 125 mls/hr 12/14/21 14:09 12/15/21 00:46 Dextrose 5% Sodium Chloride 0.45% IV CONT 125 mls/hr .Q8H JORDIN Administration Ibuprofen 800 mg in 200 mls @ 387.513 mls/hr 12/14/21 18:00 12/15/21 05:16 Caldolor 800 Mg/200 Ml IVPB 387.51 mls/hr Q6HR JORDIN Administration Morphine Sulfate 4 mg 12/14/21 14:09 12/15/21 00:45 Morphine Sulfate (*Crx) 4 Mg/Ml Inj IV PUSH 4 mg Q4H PRN Administration Pain Rated 7-10 Nitrofurantoin Macrocrystals 100 mg 12/15/21 09:00 12/15/21 08:48 Nitrofurantoin Monohyd Macrocr 100 Mg Cap PO 100 mg DAILY JORDIN Administration Ondansetron HCl 4 mg 12/14/21 14:09 12/15/21 00:45 Ondansetron Inj 4 Mg/2 Ml Vial IV PUSH 4 mg Q6H PRN Administration Nausea Oxybutynin Chloride 5 mg 04/23/22 09:00 12/15/21 08:48 Oxybutynin Chloride 5 Mg Tablet PO 5 mg BID JORDIN Administration Simethicone 80 mg 12/14/21 14:09 12/15/21 0
[2021-12-15] MEDS: SCOPOLAMINE 1.5 MG PATCH TRANSDERM (11:04)
[2021-12-15 12:00] VITALS: BP 108/67; PULSE 73; RESP 18; RESP 20; TEMP 36.6; O2SAT 100
[2021-12-15] MEDS: HYDROcodone/acetaminophen (*CRX) 10-325 MG TABLET 1 TAB PO (14:10)
[2021-12-15] MEDS: KETOROLAC 10 MG TABLET PO ×2 (16:00→21:59)
[2021-12-15 17:41] VITALS: BP 112/73; PULSE 64; PULSE 73; RESP 18; TEMP 36.6; O2SAT 100
[2021-12-15 20:15] VITALS: BP 131/81; PULSE 78; RESP 16; TEMP 36.9
[2021-12-16] MEDS: KETOROLAC 10 MG TABLET PO ×4 (04:00→22:29)
[2021-12-16] MEDS: HYDROcodone/acetaminophen (*CRX) 5-325 MG TABLET 1 TAB PO ×5 (04:03→20:33)
[2021-12-16 09:30] VITALS: BP 120/68; PULSE 73; PULSE 78; RESP 16; RESP 20; TEMP 36.6; O2SAT 100
[2021-12-16] MEDS: NITROFURANTOIN MONOHYD MACROCR 100 MG CAP PO (09:30)
[2021-12-16] MEDS: DOCUSATE SODIUM 100 MG CAPSULE PO ×2 (09:31→16:29)
[2021-12-16] MEDS: SIMETHICONE 80 MG TAB.CHEW PO ×2 (09:31→16:33)
[2021-12-16] MEDS: OXYBUTYNIN CHLORIDE 5 MG TABLET PO ×2 (09:31→16:29)
--- NOTE | 2021-12-16 13:17 | PM.GYNPNOP ---
MOTION STUDY ENGINEER - A/P Assessment and plan (1) S/P total abdominal hysterectomy: Code(s): Z90.710 - Acquired absence of both cervix and uterus Status: Acute Assessment and Plan: She is doing well. Started on regulars this morning. Headache consistent with tension headache. Will try Flexiril. Heating pad. Encourage ambulation/shower. Anticipate discharge tomorrow. Postoperative Procedures: Procedures Operation Date: 12/14/21 07:30 Actual Procedure Side Surgeon p Total Abdominal Hysterectomy with Left Salpingoophorectomy Not Applicable Sachi Oliver MD s Repair of Cystotomy Kenyon Garcia MD Time Spent With Patient Time: Total time spent is greater than 50% in coordination of care (as documented) at patient's floor/unit and/or counseling patient: Time with patient: less than 15 minutes MOTION STUDY ENGINEER- PN:Subj Post-Op Subjective Date/time seen: 12/16/21 0930 She c/o headache 8/10 on the left side goes from neck to around head. Had positive flatus last evening. Tolerated regular diet this am. Has ambulated in room and cedeño. No emesis. Exam Const: General: no acute distress Eyes: General: appearance normal, both eyes and all related structures Resp: Effort & Inspection: normal respiratory effort Auscultation: clear to auscultation bilaterally Cardio: Rate: regular rate Rhythm: regular rhythm GI: Inspection: normal to inspection Other: good bowel sounds throughout incision clean dry intact Extrem: Other: nontender, no edema tightness along neck left>right MOTION STUDY ENGINEER - PN: Obj Data Vital Signs Vital Signs: Vital Signs - 24 hr 12/15/21 17:41 12/15/21 20:15 12/16/21 09:30 Temperature 97.9 F 98.4 F Pulse Rate 73 78 78 Respiratory Rate 18 16 16 Blood Pressure 112/73 131/81 Pulse Oximetry 100 100 Intake/Output Intake/Output: Intake & Output 12/13/21 12/14/21 12/15/21 12/16/21 23:59 23:59 23:59 23:59 Intake Total 6350 1600 1220 Output Total 1110 2800 800 Balance 5240 -1200 420 Meds/Results Medications: Active Medications Generic Name Dose Route Start Last Admin Trade Name Freq PRN Reason Stop Dose Admin Hydrocodone Bitart/Acetaminophen 1 tab 12/15/21 13:40 12/15/21 14:10 Hydrocodone/Acetaminophen (*Crx) 10-325 Mg Tablet PO 1 tab Q3H PRN Administration Pain Rated 7-10 Hydrocodone Bitart/Acetaminophen 1 tab 12/15/21 13:40 12/16/21 09:45 Hydrocodone/Acetaminophen (*Crx) 5-325 Mg Tablet PO 1 tab Q3H PRN Administration Pain Rated 4-6 Cyclobenzaprine HCl 10 mg 12/16/21 09:43 Cyclobenzaprine Hcl 10 Mg Tablet PO Q8H PRN Muscle Spasm Docusate Sodium 100 mg 12/14/21 17:00 12/16/21 09:31 Docusate Sodium 100 Mg Capsule PO 100 mg BID JORDIN Administration Dextrose/Sodium Chloride 1,000 mls @ 125 mls/hr 12/14/21 14:09 12/15/21 11:13 Dextrose 5% Sodium Chloride 0.45% IV CONT 125 mls/hr .Q8H JORDIN Administration Ketorolac Tromethamine 10 mg 12/15/21 14:00 12/16/21 09:45 Ketorolac 10 Mg Tablet PO 10 mg Q6H JORDIN Administration Morphine Sulfate 4 mg 12/14/21 14:09 12/15/21 11:13 Morphine Sulfate (*Crx) 4 Mg/Ml Inj IV PUSH 4 mg Q4H PRN Administration Pain Rated 7-10 Nitrofurantoin Macrocrystals 100 mg 12/15/21 09:00 12/16/21 09:30 Nitrofurantoin Monohyd Macrocr 100 Mg Cap PO 100 mg DAILY JORDIN Administration Ondansetron HCl 4 mg 12/14/21 14:09 12/15/21 17:36 Ondansetron Inj 4 Mg/2 Ml Vial IV PUSH 4 mg Q6H PRN Administration Nausea Oxybutynin Chloride 5 mg 12/15/21 09:00 12/16/21 09:31 Oxybutynin Chloride 5 Mg Tablet PO 5 mg BID JORDIN Administration Scopolamine 1.5 mg 12/15/21 10:40 12/15/21 11:04 Scopolamine 1.5 Mg Patch TRANSDERM 1.5 mg Q72HR JORDIN Administration Simethicone 80 mg 12/14/21 14:09 12/16/21 09:31 Simethicone 80 Mg Tab.Chew PO 80 mg Q2H PRN Administration Gas Labs CBC & Chem 7: 12/15/21 05:19 12/15/21 05:
[2021-12-16] MEDS: CYCLOBENZAPRINE HCL 10 MG TABLET PO ×2 (14:08→22:30)
[2021-12-16 16:00] VITALS: PULSE 73; RESP 20; O2SAT 100
[2021-12-16 20:20] VITALS: BP 104/69; PULSE 72; RESP 18; TEMP 37.4
[2021-12-17] MEDS: KETOROLAC 10 MG TABLET PO ×2 (04:56→11:30)
[2021-12-17 08:00] VITALS: BP 110/69; PULSE 66; RESP 18; TEMP 36.8
[2021-12-17] MEDS: HYDROcodone/acetaminophen (*CRX) 5-325 MG TABLET 1 TAB PO ×2 (08:19→11:28)
[2021-12-17] MEDS: SIMETHICONE 80 MG TAB.CHEW PO (08:19)
[2021-12-17] MEDS: DOCUSATE SODIUM 100 MG CAPSULE PO (08:20)
[2021-12-17] MEDS: OXYBUTYNIN CHLORIDE 5 MG TABLET PO (08:20)
[2021-12-17] MEDS: NITROFURANTOIN MONOHYD MACROCR 100 MG CAP PO (08:21)
--- NOTE | 2021-12-17 08:23 | PM.GYNPNOP ---
REED REPAIRER - A/P Assessment and plan (1) S/P total abdominal hysterectomy: Code(s): Z90.710 - Acquired absence of both cervix and uterus Status: Acute Assessment and Plan: postop day 3. She is doing well. Will discharge today. Discharge precautions discussed. Postoperative Procedures: Procedures Operation Date: 12/14/21 07:30 Actual Procedure Side Surgeon p Total Abdominal Hysterectomy with Left Salpingoophorectomy Not Applicable Sachi Oliver MD s Repair of Cystotomy Kenyon Garcia MD Time Spent With Patient Time: Total time spent is greater than 50% in coordination of care (as documented) at patient's floor/unit and/or counseling patient: Time with patient: less than 15 minutes REED REPAIRER- PN:Subj Post-Op Subjective Date/time seen: 12/17/21 08:23 She has adequate pain control. She has positive flatus. She has ambulated. No bowel movement. The Flexeril did help the headache some. Has some symptoms of mild vertigo. No emesis. Exam Const: General: no acute distress Eyes: General: appearance normal, both eyes and all related structures Resp: Effort & Inspection: normal respiratory effort Auscultation: clear to auscultation bilaterally Cardio: Rate: regular rate Rhythm: regular rhythm GI: Other: Positive bowel sounds throughout. Appropriate tenderness No rebound. Incision clean dry and intact Extrem: General: normal to inspection Other: nontender REED REPAIRER - PN: Obj Data Vital Signs Vital Signs: Vital Signs - 24 hr 12/16/21 09:30 12/16/21 16:00 12/16/21 20:20 Temperature 97.9 F 99.3 F Pulse Rate 73 73 72 Respiratory Rate 20 20 18 Blood Pressure 120/68 104/69 Pulse Oximetry 100 100 Intake/Output Intake/Output: Intake & Output 12/14/21 12/15/21 12/16/21 12/17/21 23:59 23:59 23:59 23:59 Intake Total 6350 1600 3020 500 Output Total 1110 2800 2500 300 Balance 5240 -1200 520 200 Meds/Results Medications: Active Medications Generic Name Dose Route Start Last Admin Trade Name Freq PRN Reason Stop Dose Admin Hydrocodone Bitart/Acetaminophen 1 tab 12/15/21 13:40 12/15/21 14:10 Hydrocodone/Acetaminophen (*Crx) 10-325 Mg Tablet PO 1 tab Q3H PRN Administration Pain Rated 7-10 Hydrocodone Bitart/Acetaminophen 1 tab 12/15/21 13:40 12/17/21 08:19 Hydrocodone/Acetaminophen (*Crx) 5-325 Mg Tablet PO 1 tab Q3H PRN Administration Pain Rated 4-6 Cyclobenzaprine HCl 10 mg 12/16/21 09:43 12/16/21 22:30 Cyclobenzaprine Hcl 10 Mg Tablet PO 10 mg Q8H PRN Administration Muscle Spasm Docusate Sodium 100 mg 12/14/21 17:00 12/17/21 08:20 Docusate Sodium 100 Mg Capsule PO 100 mg BID JORDIN Administration Ketorolac Tromethamine 10 mg 12/15/21 14:00 12/17/21 04:56 Ketorolac 10 Mg Tablet PO 10 mg Q6H JORDIN Administration Nitrofurantoin Macrocrystals 100 mg 12/15/21 09:00 12/17/21 08:21 Nitrofurantoin Monohyd Macrocr 100 Mg Cap PO 100 mg DAILY JORDIN Administration Oxybutynin Chloride 5 mg 12/15/21 09:00 12/17/21 08:20 Oxybutynin Chloride 5 Mg Tablet PO 5 mg BID JORDIN Administration Scopolamine 1.5 mg 12/15/21 10:40 12/15/21 11:04 Scopolamine 1.5 Mg Patch TRANSDERM 1.5 mg Q72HR JORDIN Administration Simethicone 80 mg 12/14/21 14:09 12/17/21 08:19 Simethicone 80 Mg Tab.Chew PO 80 mg Q2H PRN Administration Gas Labs CBC & Chem 7: 12/15/21 05:19 12/15/21 05:19
--- NOTE | 2021-12-17 11:44 | PC.NURSE ---
Discharge instructions given including when to follow up with Dr. Oliver and Dr. Garcia. Instructed pt. of cerrato care and how to empty urine bag. Mother at side. Respirations even and unlabored. No distress noted. See discharge pack.
--- NOTE | 2021-12-17 13:21 | P.PNUR_ITS ---
Progress Note: A&P Assessment and Plan (1) Intraoperative bladder injury: Code(s): N99.81 - Other intraoperative complications of genitourinary system Status: Acute Assessment and Plan: Patient will be scheduled for a cystogram in one week and then cerrato will be removed in the office immediately afterward if Cysogram is normal. The patient verbalizes an understanding of the plan and has no further question s. Subjective Subjective Date/Time Seen: 12/17/21 13:21 I was unable to see the patient in person, she was discharged before I got there today. I did call her and discuss her post operative instructions over the phone and answered any post op questions she had. Objective Data Vital Signs Vital Signs: Vital Signs - 24 hr 12/16/21 16:00 12/16/21 20:20 12/17/21 08:00 Temperature 99.3 F 98.3 F Pulse Rate 73 72 66 Respiratory Rate 20 18 18 Blood Pressure 104/69 110/69 Pulse Oximetry 100 Intake/Output Intake/Output: Intake & Output 12/14/21 12/15/21 12/16/21 12/17/21 23:59 23:59 23:59 23:59 Intake Total 6350 1600 3020 1200 Output Total 1110 2800 2500 550 Balance 5240 -1200 520 650
--- NOTE | 2022-01-11 08:36 | PM.DS ---
DS: Admitting Diagnosis Discharge Date 12/17/21 Admitting Diagnosis Pelvic pain DS: Discharge Diagnosis Discharge Diagnosis (1) S/P total abdominal hysterectomy: Code(s): Z90.710 - Acquired absence of both cervix and uterus Status: Acute (2) Pelvic pain in female: Code(s): R10.2 - Pelvic and perineal pain Status: Acute DS: Summary Hospital Course Reason for hospitalization: Planned hysterectomy and left salpingo-oophrectomy. She sustained an incidental cystotomy which was repaired by Urology. Post operatively on POD1 she was sitting up in chair. She has mild nausea. This did improve with medication. She was encouraged to ambulate. She was started on oral pain medication. On the morning of POD2 she started having flatus. Her diet was advanced to regular. Nausea was improved. She had symptoms consistent with tension headache. The headache did improve with Flexiril. She started ambulating more. On POD3 she was ambulating well and had adequate pain control. Tolerating regular diet. Urology followed her post op also. She was discharged to home with an indwelling Downing catheter with plans for follow up with Urology. Hospital Course: Patient admitted on 12/14 for planned abdominal hysterectomy for chronic pelvic pain. She underwent abdominal hysterectomy complicated by incidental cystotomy. Time Spent with Patient Time attestation: Total time spent providing and/or coordinating discharge services: Exam Const: General: comfortable and no acute distress Orientation/consciousness: oriented to person, oriented to place and oriented to time Resp: Auscultation: clear to auscultation bilaterally Cardio: Rate: regular rate Rhythm: regular rhythm GI: GI Palp: Yes Soft to palpation and No Tenderness to palpation present (GI) Auscultation: normal bowel sounds Neuro: General: oriented to person, oriented to place and oriented to time Extrem: General: no calf tenderness Psych: Mental Status: mental status grossly normal DS: Data Data Completed and Pending Completed studies during hospitalization: Pending at discharge 12/14/21 10:59 Surgical [PTH] Routine Discharge Plan Discharge Attending physician on discharge: Sachi Oliver Consulting providers: Kenyon Garcia Danielle N. Discharging Clinician: Serg Fletcher Anticipated Discharge Date/Time: 12/17/21 08:32 Patient Disposition: Home, Self-Care Activity: may shower, no straining, no driving and pelvic rest Diet: regular Discharge Instructions: post hysterectomy instruction sheet. Call for any temperature greater than 100.4 or if having any vaginal bleeding where she is saturating a pad. Call for any persistent nausea or vomiting. May take MiraLax daily until having normal bowel movements. May shower. May take Colace [id number] as a stool softener. Some Complications to Watch for: ? Excessive incisional or vaginal drainage (more than one pad an hour). Additional Instructions: ? Expect some vaginal spotting for 2-4 days. ? Nothing vaginally (i.e. douching, intercourse, tampons) until follow up visit. Patient Instructions: Antibiotic Form Stand Alone Forms: General Discharge Information Follow-up/Referrals: Sachi Oliver MD [Physician] - 2 Weeks Discharge Medications: New hydrocodone-acetaminophen 5-325 mg Tablet 1 tablet PO Q3H PRN (Reason: Pain Rated 4-6) Qty: 30 RF: 0 Discontinued melatonin 3 mg capsule 3 mg PO HS PRN (Reason: Insomnia) RF: 0 multivitamin with minerals [Hair,Skin and Nails] Tablet 1 tablet PO DAILY RF: 0 acetaminophen-codeine 300-30 mg tablet 1 tablet PO Q6H PRN (Reason: pain) Qty: 60 RF: 0 No Action nitrofurantoin monohyd/m-cryst [Macrobid] 100 mg capsule 100 mg PO DAILY Qty: 14 RF: 0 Date of admission: 12/14/21 11:35 Primary Care Provider: Anderson Fonseca Admitting Provider: Sachi Oliver Attending physician on ad
== END 2021-12-17 12:05 | disposition home or self-care (01) | DRG 223 ==
LOC: ANHOB2 12-17 08:34
PROVIDERS: Urology; Admitting Provider Student in an Organized Health Care Education/Training Program; PCP Family Medicine; Visit Provider Obstetrics & Gynecology
PROC: 0UT94ZZ Resection of Uterus, Percutaneous Endoscopic Approach (ICD-10-PCS; principal; 2021-12-14 07:30)
PROC: 0TQB0ZZ Repair Bladder, Open Approach (ICD-10-PCS; CPT 51050; 2021-12-14 07:30)
DX: R10.2 Pelvic and perineal pain (principal); N73.6 Female pelvic peritoneal adhesions (postinfective); N99.85 Post endometrial ablation syndrome; N99.71 Accidental puncture and laceration of a genitourinary system organ or structure during a genitourinary system procedure; G44.209 Tension-type headache, unspecified, not intractable; Z86.718 Personal history of other venous thrombosis and embolism; Z98.51 Tubal ligation status
CPT/HCPCS: 36415; 80048; 85025; 88307; A9270; J0131; J0690; J1100; J1170; J1200; J1741; J1885; J2001; J2250; J2270; J2405; J2704; J2710; J3010; J7030; J7120; Q9968

== ENCOUNTER 2021-12-24 08:44 | Outpatient (CLI) | payer BC, SELFPAY ==
--- NOTE | ~2021-12-24 | XR_ITS ---
EXAMINATION: XR cystogram DATE: 12/24/2021 09:36 INDICATION: Bladder injury during hysterectomy TECHNIQUE: Water-soluble contrast was gravity-infused through the patient's Downing catheter. Multiple fluoroscopic images were obtained. Fluoroscopy exposure time was 1.1 minutes. The DAP for this proced ure was 13.72 Gycm2. COMPARISON: None. FINDINGS: A Downing catheter is present in the bladder. Bladder contour is normal. There is no evidence of bladder leak. IMPRESSION: 1. No evidence of bladder leak. Reviewed, dictated and finalized at location A.
== END 2021-12-24 08:45 | disposition home or self-care (01) ==
PROVIDERS: PCP Family Medicine; Visit Provider Nurse Practitioner Adult Health
DX: N99.81 Other intraoperative complications of genitourinary system (principal)
CPT/HCPCS: 51600; 74430; Q9967

== ENCOUNTER 2023-08-07 16:32 | Outpatient (CLI) | payer OTHER, SELFPAY ==
--- NOTE | ~2023-08-07 | MM_ITS ---
EXAMINATION: MM scrn nadege implant BI w join HISTORY: Screening mammogram TECHNIQUE: Craniocaudal and mediolateral oblique 3-D tomosynthesis images with implant displacement a nd synthetic 2-D images were generated. Craniocaudal and mediolateral oblique views of the breasts wi thout implant displacement were obtained using full field digital mammography. CAD analysis was submi tted and interpreted. COMPARISON: 11/16/2021 BREAST PARENCHYMAL COMPOSITION: There are scattered areas of fibroglandular density. FINDINGS: Stable probable lymph node at the upper left breast. There is no evidence of suspicious mas s, calcification, or architectural distortion to suggest malignancy in either breast. There has been no suspicious interval change. Bilateral implants are unchanged. IMPRESSION: No mammographic evidence of malignancy. Recommend routine screening mammography in one year. BI-RADS Category 2: Benign finding(s). Reviewed, dictated and finalized at [facility]. [employer]
== END 2023-08-07 16:33 | disposition home or self-care (01) ==
PROVIDERS: PCP Family Medicine; Visit Provider Obstetrics & Gynecology
DX: Z12.31 Encounter for screening mammogram for malignant neoplasm of breast (principal)
CPT/HCPCS: 77063; 77067

== ENCOUNTER 2024-12-30 00:31 | Day surgery (SDC) | payer OTHER, SELFPAY ==
[2024-12-24 14:04] VITALS: BMI 24.7
--- OUTSIDE RECORDS SUMMARY | 2024-12-30 00:34 | XMS_ITS | Encounter Summary ---
Author Organization [facility] Address [address] [place] [address] Phone Care Team Providers Care Granulating Blender Name Role Phone Anderson Fonseca MD Primary Care Provider [phone] Encounter Details Date Type Department Care Team (Late st Contact Info) Description 04/17/2020 Telephone [facility] [address] [place] [address] Nick Shook MD [address] [place] [address] Social History Tobacco Use Types Packs/Day Years Used Date Smoking Tobacco: Never Assessed Comments Unknown Sex and Gender Information Value Date Recorded Sex Assigned at Not on file Legal Sex Female 8:46 AM CDT Gender Identity Not on file Sexual Orientation Not on file documented as of this encounter Miscellaneous Notes * Telephone Encounter - Vani Douglass - 04/17/2020 8:14 AM CDT PATIENT CALLED TO CANCEL WOOD ROOM SUPERVISOR APPT. PATIENT HAS SURGERY AND WANTS TO CALL TO RESCHEDULE ONCE SHE IS FEELING UP TO IT. documented in this encounter Plan of Treatment Not on file documented as of this encounter Visit Diagnoses Not on filedocumented in this encounter Care Teams Granulating Blender Relationship Specialty Start Date End Date Anderson Fonseca MD [address] [place] [id number] PCP - General Family Medicine 04/05/20 documented as of this encounter
--- OUTSIDE RECORDS SUMMARY | 2024-12-30 00:34 | XMS_ITS | Clinical Summary ---
Author Organization [facility] Address [address] [place], [facility] [address] [place] [address] Phone Care Team Providers Care Alligator Shear Operator Name Role Phone Anderson Fonseca MD Primary Care Provider Social History Tobacco Use Types Packs/Day Years Used Date Smoking Tobacco: Never Assessed Comments Unknown Sex and Gender Information Value Date Recorded Sex Assigned at Not on file Legal Sex Female 8:46 AM CDT Gender Identity Not on file Sexual Orientation Not on file Plan of Treatment Not on file Insurance [facility] Care Teams Alligator Shear Operator Relationship Specialty Start Date End Date Anderson Fonseca MD [address] [place] [id number] PCP - General Family Medicine 04/05/20
--- OUTSIDE RECORDS SUMMARY | 2024-12-30 00:34 | XMS_ITS | Encounter Summary ---
Author Organization [facility] Address [address] [place] [id number] Care Team Providers Care First Line Supervisor Name Role Phone Mae Jansen MD Primary Care Provider [phone] Encounter Details Date Type Department Care Team (Late st Contact Info) Description 07/07/2023 [facility] Message Enc [facility] Family Medicine - [place] [address] [place] [address] [facility] Provider Screening Social History Tobacco Use Types Packs/Day Years Used Date Smoking Tobacco: Never Smokeless Tobacco: Never Alcohol Use Standard Drinks/Week Comments Yes 0 (1 standard drink = 0.6 oz pur e alcohol) AUDIT-C Answer Date Recorded Frequency of Alcohol Consumption Monthly or less 07/13/2018 Average Number of Drinks 1 or 2 018 Frequency of Binge Drinking Never 06/25 PHQ-2 Answer Date Recorded PHQ-2 Score - If the patient scores above 3, please move on to questions 3-9 0 04/27/2021 Comments No Sex and Gender Information Value Date Recorded Sex Assigned at Not on file Legal Sex Female 7:16 PM CDT Gender Identity Not on file Sexual Orientation Not on file documented as of this encounter Plan of Treatment Not on file documented as of this encounter Visit Diagnoses Not on filedocumented in this encounter Additional Health Concerns Assessment Noted Time PHQ-9 Depression Total Score: 0 04/27/20 21 7:04 AM CDT documented as of this encounter Care Teams First Line Supervisor Relationship Specialty Start Date End Date Mae Jansen MD [address] [place] [address] PCP - General FAMILY PRACTICE 04/24/21 documented as of this encounter
--- OUTSIDE RECORDS SUMMARY | 2024-12-30 00:34 | XMS_ITS | Clinical Summary ---
Author Organization [facility] Address [address] [place] [address] Care Team Providers Care Child Attendant Name Role Phone Anderson Fonseca MD Primary Care Provider [phone] Source Comments [facility],non-owned Affiliates and Associated Physician Practices is amultiple site organization consisting of ambulatory clinics and hospital sitesin [place], [place], [place] and [place]. This disclosure is being madepursuant to the Care Everywhere program and may not contain all information available regarding this patient. Last updated 18.[facility] Allergies No known active allergies Medications * Be aware that medications may not be up to date on this document. Alwaysverify current medications with the patient. Biotin 1 MG biotin Active melatonin 5 MG tablet Take 5 mg by mouth once daily Active Levonorgest-Eth inyl Estradiol (LOSEASONIQUE) TABS tablet Take 1 tablet by mouth once daily 0 Active Multiple Vitamin (MULTI-VITAMINS ) TABS Take 1 tablet by mouth once daily Active topiramate (TOPAMAX) 25 MG tablet topiramate 25 mg tablet 0 Active Social History Tobacco Use Types Packs/Day Years Used Date Smoking Tobacco: Never Smokeless Tobacco: Never Alcohol Use Standard Drinks/Week Comments Not Currently 0 (1 standard drink = 0.6 oz pur e alcohol) Comments Unknown Sex and Gender Information Value Date Recorded Sex Assigned at Not on file Legal Sex Female 5:32 AM ACTUARIAL MATHEMATICIAN Gender Identity Not on file Sexual Orientation Not on file Last Filed Vital Signs Vital Sign Reading Time Taken Comments Blood Pressure 125/82 02/01/2020 9:16 AM CDT Pulse 86 02/01/2020 9:16 AM CDT Temperature 36.4 C (97.6 F) 02/01/2020 9:16 AM CDT Respiratory Rate - - Oxygen Saturation 96% 02/01/2020 9:16 AM CDT Inhaled Oxygen Concentration - - Weight 70.8 kg (156 lb) 02/01/2020 9:16 AM CDT Height 157.5 cm (5' 2 ) 02/01/2020 9:16 AM CDT Body Mass Index 28.53 02/01/2020 9:16 AM CDT Plan of Treatment Health Maintenance Due Date Last Done Comments COLOGUARD (AGES 45-75) - COL ON CA SCREENING 1979 COLON MONITORING 1979 COLONOSCOPY - COLON CA SCREENING 1979 CT COLONOGRAPHY - COLON CA SCREENING 1979 Colorectal Cancer Screening 1979 FIT - COLON CA SCREENING 1979 FLEX SIG - COLON CA SCREENING 1979 LIPID TESTING 1979 MAMMOGRAM 1979 HIV SCREENING 1994 HEPATITIS C SCREENING 07/18/1997 DTAP/TDAP/TD VACCINES (1 - Tdap) 1998 HEPATITIS B VACCINE (1 of 3 - 19+ 3-dose series) 1998 SCREENING FOR DIABETES 02/01/2020 COVID-19 VACCINE (1 - 2023-2 5 season) 2024 DEPRESSION SCREENING 08/25/2024 INFLUENZA VACCINE (Season Ended) 2025 ZOSTER VACCINE (1 of 2) 2029 HIB VACCINE Aged Out No longer eligi ble based on patient's age to complete this topic HPV VACCINE Aged Out No longer eligi ble based on patient's age to complete this topic MENINGOCOCCAL (Group B) VACC INE SHARED DECISION-MAKING Aged Out No longer eligibl e based on patient's age to complete this topic MENINGOCOCCAL GROUPS A/C/Y/W VACCINE Aged Out No longer eligible b ased on patient's age to complete this topic PNEUMOCOCCAL VACCINE Aged Out No long er eligible based on patient's age to complete this topic Insurance [employer] Care Teams Child Attendant Relationship Specialty Start Date End Date Anderson Fonseca MD PCP - General 11/10/19
--- OUTSIDE RECORDS SUMMARY | 2024-12-30 00:34 | XMS_ITS | Clinical Summary ---
Author Organization [facility] Address [address] [place] [id number] Care Team Providers Care Sql Database Developer Name Role Phone Mae Jansen MD Primary Care Provider [phone] Allergies Active Allergy Reactions Criticality Noted Date Comments Amoxicillin Other (see comment) High 07/13/2018 UTI Medications multivitamin tablet Take 1 tablet by mouth daily. Active melatonin 5 MG tablet Take 5 mg by mouth daily. Active Active Problems Problem Noted Date Diagnosed Date Abdominal discomfort 07/13/2018 Anemia, unspecified type 07/13/2018 Abnormal uterine bleeding (AUB) 07/13/2018 Anxiety 07/13/2018 Night sweat 07/13/2018 Shaking 07/13/2018 Hypoglycemia 07/13/2018 Body aches 09/23/2014 Muscle spasm 09/23/2014 Lumbar strain 07/01/2013 Immunizations Immunization Administration Dates Next Due Dtp 03/08/1986, 4,01/11/1980,1979,1979 Hepatitis B Pediatric 12/06/1996,08/02/1996,05/25 MMR 04/10/1990,12/22/1980 Opv 03/08/1986, 4,1979,1979 PFIZER COVID-19 (ORIGINAL FORMULATION, PURPLE CAP) mRNA, LNP-S, PF, 30 MCG/0.3 ML DOSE 11/23/2020,11/03/2020 Tetanus/Diptheria 06/03/1996 Family History Relation Status Comments Father Alive Mother Alive Social History Tobacco Use Types Packs/Day Years [...] Sign Reading Time Taken Comments Blood Pressure 115/76 04/27/2021 6:58 AM CDT Pulse 59 04/27/2021 6:58 AM CDT Temperature 36.8 C (98.3 F) 04/27/2021 6:58 AM CDT Respiratory Rate 16 04/27/2021 6:58 AM CDT Oxygen Saturation 99% 04/27/2021 6:58 AM CDT Inhaled Oxygen Concentration - - Weight 71.2 kg (157 lb) 04/27/2021 6:58 AM CDT Height 157.5 cm (5' 2 ) 04/27/2021 6:58 AM CDT Body Mass Index 28.72 04/27/2021 6:58 AM CDT Plan of Treatment Health Maintenance Due Date Last Done Comments Cervical Cancer Screening Pap Smear (Age 30 to 64) Every 3 Years 1979 Colorectal Cancer Screening Colonoscopy (10 Years) 1979 DTaP, Tdap and Td Vaccines (2 - Tdap) 06/04/1996 06/03/1996, 03/08/1986, 01/23/1984, Additional history exists Hepatitis C 1997 Cervical Cancer Screening Pap with HPV Testing (Age 30 to 64) Every 5 Years 2009 Cervical Cancer Screening with HPV 2009 Mammogram Screening 10/01/2021 10/01/2019 Annual Physical 04/27/2022 04/27/2021 COVID-19 Vaccine ( season) 2024 11/23/2020, 11/03/2020 PHQ-2 (Physician [place]) 08/25/2024 Hepatitis B Vaccines Completed 12/06/1996, 08/02/1996, 06/03/1996 HPV Vaccines Aged Out No longer eligi ble based on patient's age to complete this topic Meningococcal B Vaccine Aged Out No l onger eligible based on patient's age to complete this topic Meningococcal Vaccine Aged Out No johnathan priti eligible based on patient's age to complete this topic Pneumococcal Vaccine: Pediatrics (0 to 5 Years) and At-Risk Patients (6 to 49 Years) Aged Out No longer eligible based on patient's age to complete this topic RSV Immunizations Under 20 Months Aged Out No longer eligible based on patient's age to complete this topic Procedures Procedure Name Priority Date/Time Associated Diagnosis Comments MG SCREENING IMPLANT W KAREN KISHORE DIGI Routine 10/01/2019 3:43 PM TERRITORY BUSINESS MANAGER Encounter for screening mammogram for malignant neoplasm of breast from Last 3 Months or Most Recently Relevant to Health Maintenance Results * MG SCREENING IMPLANT W KRAEN KISHORE DIGI (10/01/2019 3:43 PM TERRITORY BUSINESS MANAGER) Anatomical Region Laterality Modality Breast Bilateral Mammography 10/01/2019 3:50 PM TERRITORY BUSINESS MANAGER Impressions 10/01/2019 4:00 PM TERRITORY BUSINESS MANAGER =====IMPRESSION:===== No mammographic findings suggestive of malignancy. ASSESSMENT: ACR BI-RADS Category 2 - Benign. RECOMMENDATION: 1: Routine screening mammogram bilateral in 1 year COMMENTS: Narrative 10/01/2019 4:00 PM TERRITORY BUSINESS MANAGER EXAMINATION: Digital bilateral screening mammogram with 3-D tomosynthesis EXAM DATE/TIME: 10/01/2019 3:25 PM REASON FOR EXAM: screening No current complaints COMPARISON: None TECHNIQUE: Digital screening mammography of both breasts was performed in addition to 3-D Tomosynthesis technique. This study was read with the assistance of a computer-aided detection system. TISSUE DENSITY: The breast tissue is heterogeneously dense. FINDINGS: No suspicious masses, malignant appearing calcifications, skin thickening or other abnormalities are present. Bilateral breast implants in place. us Shelley Anguiano MD MAMMO Final Result from Last 3 Months or Most Recently Relevant to Health Maintenance Insurance BLUE CROSS BLUE SHIELD BLUE CROSS BLUE SHIELD BLUE CROSS BLUE SHIELD Care Teams Sql Database Developer Relationship Specialty Start Date End Date Mae Jansen MD [address] [place] [address] PCP - General FAMILY PRACTICE 04/24/21
--- OUTSIDE RECORDS SUMMARY | 2024-12-30 00:35 | XMS_ITS | Clinical Summary ---
Author Organization [facility] Address [facility] [place] [address] Care Team Providers Care Palliative Care Coordinator Name Role Phone Anderson Fonseca MD Primary Care Provider [phone] Anderson Fonseca MD Unavailable [phone] Allergies Active Allergy Reactions Criticality Noted Date Comments Amoxicillin Other (See comments) High 07/13/2018 UTI Medications celecoxib (CeleBREX) 200 mg capsuleIndicati ons:Dysmenorrhe a Take 1 capsule (200 mg total) by mouth 2 (two) times a day as needed for pain 30 capsule 09/14/2021 Active biotin 10 mg tablet biotin 10 mg tablet Active melatonin 5 mg tablet Take 5 mg by mouth as needed Active Active Problems No known active problems Social History Tobacco Use Types Packs/Day Years Used Date Smoking Tobacco: Never Smokeless Tobacco: Never Comments No Sex and Gender Information Value Date Recorded Sex Assigned at Not on file Legal Sex Female 6:31 PM MOLECULAR SPECTROSCOPIST Gender Identity Not on file Sexual Orientation Not on file Obstetrics History Last Filed Vital Signs Vital Sign Reading Time Taken Comments Blood Pressure 128/86 10/02/2021 9:26 AM MOLECULAR SPECTROSCOPIST Pulse 70 09/14/2021 6:13 PM MOLECULAR SPECTROSCOPIST Temperature 36.8 C (98.3 F) 10/02/2021 9:26 AM MOLECULAR SPECTROSCOPIST Respiratory Rate 16 09/14/2021 6:13 PM MOLECULAR SPECTROSCOPIST Oxygen Saturation 100% 09/14/2021 6:13 PM MOLECULAR SPECTROSCOPIST Inhaled Oxygen Concentration - - Weight 71.7 kg (158 lb) 10/02/2021 9:26 AM MOLECULAR SPECTROSCOPIST Height 157.5 cm (5' 2 ) 10/02/2021 9:26 AM MOLECULAR SPECTROSCOPIST Body Mass Index 28.9 10/02/2021 9:26 AM MOLECULAR SPECTROSCOPIST Plan of Treatment Health Maintenance Due Date Last Done Comments Breast Cancer Screening-Mammogram 1979 Cervical Cancer Screening 1979 Colon Cancer Screening-Colonoscopy 1979 Depression Screening 1979 Hepatitis C Screening 1979 DTaP/Tdap/Td Vaccine (6 - Tdap) 06/04/1996 06/03/1996, 06/03/1996, 03/08/1986, Additional history exists Regular Well Visit/Exam 18-64 1997 Covid-19 Vaccine ( season) 2024 08/22/2021, 11/23/2020, 11/03/2020 Influenza Vaccine (#1) 2024 Hepatitis B Screening Completed 12/06/1996 , 08/02/1996, 06/03/1996 HPV Vaccines Aged Out No longer eligi ble based on patient's age to complete this topic Pneumococcal vaccine <65 Aged Out No longer eligible based on patient's age to complete this topic Insurance [facility] [employer] [place] [id number] [facility] [employer] [place] [id number] Care Teams Palliative Care Coordinator Relationship Specialty Start Date End Date Anderson Fonseca MD PCP - General 10/03/21 Anderson Fonseca MD Family Practice 10/03/21
--- OUTSIDE RECORDS SUMMARY | 2024-12-30 00:35 | XMS_ITS | Referral Summary ---
Author Organization [facility] Address [address] [place] [address] Care Team Providers Care Store Administrative Assistant Name Role Phone Anderson Fonseca MD Primary Care Provider [phone] Anderson Fonseca MD Unavailable [phone] Allergies Active Allergy Reactions Criticality Noted Date [...] on file Legal Sex Female 6:31 PM DIGITAL SALES REPRESENTATIVE Gender Identity Not on file Sexual Orientation Not on file Last Filed Vital Signs Vital Sign Reading Time Taken Comments Blood Pressure 128/86 10/02/2021 9:26 AM DIGITAL SALES REPRESENTATIVE Pulse 70 09/14/2021 6:13 PM DIGITAL SALES REPRESENTATIVE Temperature 36.8 C (98.3 F) 10/02/2021 9:26 AM DIGITAL SALES REPRESENTATIVE Respiratory Rate 16 09/14/2021 6:13 PM DIGITAL SALES REPRESENTATIVE Oxygen Saturation 100% 09/14/2021 6:13 PM DIGITAL SALES REPRESENTATIVE Inhaled Oxygen Concentration - - Weight 71.7 kg (158 lb) 10/02/2021 9:26 AM DIGITAL SALES REPRESENTATIVE Height 157.5 cm (5' 2 ) 10/02/2021 9:26 AM DIGITAL SALES REPRESENTATIVE Body Mass Index 28.9 10/02/2021 9:26 AM DIGITAL SALES REPRESENTATIVE Plan of Treatment Not on file Insurance [facility] Care Teams Store Administrative Assistant Relationship Specialty Start Date End Date Anderson Fonseca MD PCP - General 10/03/21 Anderson Fonseca MD Family Practice 10/03/21
--- OUTSIDE RECORDS SUMMARY | 2024-12-30 00:35 | XMS_ITS | Data Portability ---
Author Organization [facility] [place] Address [address] [place] [address] [place] [address] Assessment No assessment recorded. Plan of Treatment Reminders Order Date Submit Date Provider Last Modified By Organization Details Last Modified Time Details Appointments None recorded. Lab None recorded. Referral None recorded. Procedures None recorded. Surgeries None recorded. Imaging US, pelvis 2019 [email or web address] [place], [address], [address], [place], [address], 0 21:24:21 , chetna al 2019 020 QIAN [place], [address], [address], [place], [address], 1 05:02:23 Medication Orders LoSeasoniq ue 0.1 mg-20 mcg (84)/10 mcg (7) tablets,3 month dose pack 2019 020 INTERFACE [id number], [address], [place], [id number], 0 11:38:02 Patient TargetsNo targets recorded. Patient InstructionsNo instructions recorded. Reason for Referral None Reported. Results Created Date Observation Date Name Description Value Unit Range Abnormal Flag Note LastModifiedBy Organization Detail LastModifiedTime 10/12/19 21 10/12/2020 , zay jones md interpretati on Not Available [facility] [address], [place], [address], 04/10/2020 11:16:58 04/10/20 20 US, pelvi s No observ ation record ed. garett Stern [address], [place], [address], 04/11/2020 10:21:42 Result Notes None recorded. 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) w/o abn findings;R ecorded Elsewhere: No Locatio n: [facility] rce: EHR Chroni c: N Practice ID: [id number] Billa ble Time: 10:30:00 AM Not Available [facility] 0 16:12:[address] Concept Active 2019 Encntr for general adult medical exam w/o abnormal findings;R ecorded Elsewhere: No Locatio n: [facility] rce: EHR Chroni c: N Practice ID: 0001 Billa ble Time: 10:30:00 AM Not Available [facility] 0 16:12:14 Uses combined oral contracep tion [id number] Active 2019 Encounter for initial prescripti on of contracept malachi pills;Deepak rded Elsewhere: No Locatio n: [facility] rce: EHR Chroni c: N Practice ID: 0001 Billa ble Time: 10:30:00 AM Not Available [facility] 0 16:12:14 Finding of pattern of menstrual cycle [id number] Active 2019 Metrorrhag ia;Recorde d Elsewhere: No Locatio n: [facility] rce: EHR Chroni c: N Practice ID: 0001 Billa ble Time: 10:30:00 AM Not Available [facility] 0 16:12:14 Problem Notes None recorded. Procedures Surgical History Date Name Laterality Status Provider Name and Address Organization Details Recorded Time 020 Date of Last Pap Smear completed Santa Aleman [facility] 12/24/2019 11:08:47 011 section completed [facility] 12/12/2019 13:39:27 010 section completed [facility] 12/12/2019 13:39:36 001 section completed [facility] 12/12/2019 13:39:48 ligation of bilateral fallopian tubes completed [facility] 12/12/2019 13:40:02 augmentation mammoplasty completed [facility] 12/12/2019 13:40:17 resection of intestine for interposition completed [facility] 12/12/2019 13:41:01 Imaging Results Imaging Date Name Status LastModified by Organiz ation Details LastModified Time 04/10/2020 US, pelvis completed layran Leena [address], [place], [address], 04/11/2020 10:21:42 Procedure Notes None recorded. Medical Equipment None Reported. Allergies No known drug allergies Medications Name Sig Start Date Stop Date Status Note LastModified by Organization Details LastModified Time biotin 10 mg tablet active Prescribed Elsewhere: Yes Locati on: [facility] Mod era By: francisco Barker ncounter DateTime: 09/23/2019 10:30:00 AM Not Available Not Available Not Available topiramate 25 mg tablet active Not Available Not Available Not Available melatonin 3 mg tablet active Prescribed Elsewhere: Yes Locati on: [facility] Mod era By: [email or web address] E ncounter DateTime: 09/23/2019 10:30:00 AM Not Available Not Available Not Available melatonin active Not Available Not Sandy ilable Not Available biotin active Not Available Not Availa ble Not Available L norgest/E estradiol-E estrad 0.1 mg-20 mcg (84)/10 mcg (7) tabs,3mos Take 1 tablet every day by oral route. active Not Available Not Available No t Available Vitals Date Recorded Body weight Body mass index (BMI) Body height Systolic blood pressure Diastolic blood pressure Provider Name and Address Organization Details Last Updated DateTime 12/24/2019 77676 g 28.7 kg/m2 157.48 cm 127 mm[Hg] 83 mm[Hg] Santa Aleman [facility] 0 11:16:03 Social History Question Answer Notes LastModified by Organizat ion Details LastModified Time Tobacco Smoking Status Never Smoker Not Available [facility] 06/27/2020 03:28:11 What Is Your Level Of Alcohol Consumption? Occasional [id number] Information not available 06/27/2020 Sex: Unknown Functional Status Question Answer Note LastModified by Organization D etails LastModified Time What is your exercise level? Moderate [id number] Information not available 06/27/2020 Mental Status None recorded. Family History Relationship Description Onset Age of this Age Resolved Age Notes LastModified by Organization Details LastModified Time Maternal Grandfather Family history of cancer of colon [email or web address] maya Not available 12/12/2019 13:38:57 Notes:Maternal grandfather: Cancer, colon Medical History No medical history recorded. Gynecological History Statement/Question Response Date of Last Pap Smear 09/23/2019 Current Control Method BCPs Date of LMP 12/23/2019 LMP Definite Obstetrics History GPAL:G 4 P 2 1 1 3 Type Value Full Term 2 Spontaneous 1 Premature 1 Living 3 Total 4 Past Encounters Encounter ID Performer Location Encounter Start Date Encounter Closed Date Diagnosis/Indication Diagnosis SNOMED-CT Code Diagnosis ICD10 Code Diagnosis Note [id number] Shelley Anguiano MD [place] [address] [address] 12/24/2019 11:06:46 12/24/2019 12:10:42 Menometrorrhagia 488653723 N92.1 She'd like to try one more 3 month pack of OCP. If bleeding not improved, she will consider Mirena IUD or depo provera. We discussed those options in detail today. She is s/p BTL so she is not relying on any of this for contracept ion but hoping for cycle control Surveillan ce of oral contraception [id number] Z30.41 [id number] Kyle Sotelo MD [place] [address] [address] 04/10/2020 10:28:35 04/10/2020 11:22:41 Cyst of ovary 32139925 N83.291 Health Concerns Section Related Observation LastModified by Organization Detai ls LastModified Time None Recorded Concern Status LastModified by Organization Details LastModified Time None Recorded Advance Directives Directive None Recorded Payers Encounter Date Sequence Insurance Name Policy Number Policy Shepard Covered Member ID Shepard Member ID Guarantor Name 12/24/2019 1 [place] [id number] Temetria Montoya [id number] Temetria Montoya 04/10/2020 1 [place] [id number] Temetria Montoya [id number] Temetria Montoya Notes Date Note Type Note Provider Name and Address Organization Details Recorded Time 12/24/2019 text/html She has been bleeding lightly most days on 3 month cycling pill. No LYNCH or nausea. She had breast tenderness just the last few days on placebo week. No pelvic pain, CP, SOB, dizziness, unusual discharge, or new partner. Delilah waller [facility] 12/24/2019 11:39:40 OBGyn Episode Ob Episode Information Episode Created Date Number of Fetuses Patient Bloodtype Patient rh Status Prepregnancy Weight lbs Domestic Partner Domestic Partner Phone Father Name Quality Eng Status 12/24/19 20 1 CLOSED Fetus Data First Name Last Name Admitted to NICU Weight (g) Sex Living Outcome Pediatric Complications Fetus ID Race Codes Race Delivery Type 3061.74 6 Full Term 1032 Primary Desmond Calculation Initial Desmond Date Initial Exam Date Initial Exam Provider Initial Ultrasound Date Last Menstrual Period Date Ultra Sound Weeks Gestation 0 Eighteen To Twenty Week Desmond Update Ultra Sound Date Fundal Height At Umbil Quickening Date Ultra Sound Latest Weeks Gestation Final Desmond Confirmed By Final Desmond Confirmed Date Final Desmond Date Ultra Sound Latest Days Gestation 0 0 Menstrual History Last Menstrual Date Menses Monthly On Bcp Conception Prior Menses Frequency Hcg Plus Date Menarche Onset Age Delivery Information Delivery Date Delivery Type Labor Anesthesia Weeks Gestation Incision Type Labor Labor Length Hrs Delivered By Post Complications Tubal Sterilization Discharge Date Comments 1 38 Female( Oralia ) Discharge Information Feeding Method Contraceptive Method Maternal HG B and HCT Levels Ob Episode Information Episode Created Date Number of Fetuses Patient Bloodtype Patient rh Status Prepregnancy Weight lbs Domestic Partner Domestic Partner Phone Father Name Quality Eng Status 12/24/19 20 1 CLOSED Fetus Data First Name Last Name Admitted to NICU Weight (g) Sex Living Outcome Pediatric Complications Fetus ID Race Codes Race Delivery Type 3146.56 [id number] Full Term 1029 Primary Desmond Calculation Initial Desmond Date Initial Exam Date Initial Exam Provider Initial Ultrasound Date Last Menstrual Period Date Ultra Sound Weeks Gestation 0 Eighteen To Twenty Week Desmond Update Ultra Sound Date Fundal Height At Umbil Quickening Date Ultra Sound Latest Weeks Gestation Final Desmond Confirmed By Final Desmond Confirmed Date Final Desmond Date Ultra Sound Latest Days Gestation 0 0 Menstrual History Last Menstrual Date Menses Monthly On Bcp Conception Prior Menses Frequency Hcg Plus Date Menarche Onset Age Delivery Information Delivery Date Delivery Type Labor Anesthesia Weeks Gestation Incision Type Labor Labor Length Hrs Delivered By Post Complications Tubal Sterilization Discharge Date Comments 1 40 Male ([place] ) baby in distress Discharge Information Feeding Method Contraceptive Method Maternal HG B and HCT Levels Ob Episode Information Episode Created Date Number of Fetuses Patient Bloodtype Patient rh Status Prepregnancy Weight lbs Domestic Partner Domestic Partner Phone Father Name Quality Eng Status 12/24/19 1 CLOSED Fetus Data First Name Last Name Admitted to NICU Weight (g) Sex Living Outcome Pediatric Complications Fetus ID Race Codes Race Delivery Type , Spontane ous 1030 Desmond Calculation Initial Desmond Date Initial Exam Date Initial Exam Provider Initial Ultrasound Date Last Menstrual Period Date Ultra Sound Weeks Gestation 0 Eighteen To Twenty Week Desmond Update Ultra Sound Date Fundal Height At Umbil Quickening Date Ultra Sound Latest Weeks Gestation Final Desmond Confirmed By Final Desmond Confirmed Date Final Desmond Date Ultra Sound Latest Days Gestation 0 0 Menstrual History Last Menstrual Date Menses Monthly On Bcp Conception Prior Menses Frequency Hcg Plus Date Menarche Onset Age Delivery Information Delivery Date Delivery Type Labor Anesthesia Weeks Gestation Incision Type Labor Labor Length Hrs Delivered By Post Complications Tubal Sterilization Discharge Date Comments 0 Discharge Information Feeding Method Contraceptive Method Maternal HG B and HCT Levels Ob Episode Information Episode Created Date Number of Fetuses Patient Bloodtype Patient rh Status Prepregnancy Weight lbs Domestic Partner Domestic Partner Phone Father Name Quality Eng Status 12/24/19 20 1 CLOSED Fetus Data First Name Last Name Admitted to NICU Weight (g) Sex Living Outcome Pediatric Complications Fetus ID Race Codes Race Delivery Type 3401.94 Prematur e 1031 Primary Desmond Calculation Initial Desmond Date Initial Exam Date Initial Exam Provider Initial Ultrasound Date Last Menstrual Period Date Ultra Sound Weeks Gestation 0 Eighteen To Twenty Week Desmond Update Ultra Sound Date Fundal Height At Umbil Quickening Date Ultra Sound Latest Weeks Gestation Final Desmond Confirmed By Final Desmond Confirmed Date Final Desmond Date Ultra Sound Latest Days Gestation 0 0 Menstrual History Last Menstrual Date Menses Monthly On Bcp Conception Prior Menses Frequency Hcg Plus Date Menarche Onset Age Delivery Information Delivery Date Delivery Type Labor Anesthesia Weeks Gestation Incision Type Labor Labor Length Hrs Delivered By Post Complications Tubal Sterilization Discharge Date Comments 0 35 Discharge Information Feeding Method Contraceptive Method Maternal HG B and HCT Levels
[2024-12-30 09:22] VITALS: BP 140/92; PULSE 69; RESP 18; TEMP 36.1; O2SAT 100; BMI 24.8
[2024-12-30] MEDS: LACTATED RINGERS 1,000 ML 150 ML IV CONT (09:40)
--- NOTE | 2024-12-30 09:49 | WPDANESEPPF ---
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 Patient Data Age: 44 Gender: F Height: 1.57 m Weight: 61.6 kg Last Vital Signs Temp 97 F L 12/30/24 09:22 Pulse 69 12/30/24 09:22 Resp 18 12/30/24 09:22 BP 140/92 H 12/30/24 09:22 Pulse Ox 100 12/30/24 09:22 O2 Del Method Room Air 12/30/24 09:22 Allergies Allergy/AdvReac Type Severity Reaction Status Date / Time amoxicillin Allergy Unknown Unknown Verified 12/30/24 09:21 Home Medications ?Medication ?Instructions ?Recorded ?Confirmed ?Type multivitamin (Daily Multi-Vitamin 1 tablet PO DAILY 01/22/22 12/30/24 History tablet) simethicone 125 mg capsule 125 mg PO QID PRN gas #120 caps 04/02/24 12/24/24 Rx Patient hx anesthesia problems: none Family hx anesthesia problems: none Results Review: All pre-operative results and documents have been reviewed as part of the pre-operative evaluation. [facility] Past Medical History Medical History History of miscarriage x1 Portal vein thrombosis Thrombosis Anxiety Ovarian cyst Surgical History Surgical History H/O: hysterectomy History of endometrial ablation S/P laparoscopic procedure Previous section X3 History of bilateral tubal ligation H/O breast augmentation History of bowel resection Family History Family History Grandparent Carcinoma of colon Social History Social History Smoking status: Never smoker Alcohol intake: current Drinks per week: 3 Alcohol use details: once a week Substance use: never Substance use type: does not use Lack of Transportation: No Lack of Food: Never True Current Housing: I Have Housing Concerned About Future Housing: No Difficulty Paying Gas/Electric Bills: No Difficulty Paying for Meds: No Currently Unemployed: No Difficulty w/ Childcare or Family Care: Decline to Answer Living arrangements: with roommate(s) Additional living arrangements comments: CHILDREN Occupation/Education: other Gender identity (if verbalized by the patient): Female Sexual Orientation (if Verbalized by the Patient): Straight or Heterosexual Spiritual care concerns: No Anes - Eval Final PreProcedure Day of Procedure 12/30/24 09:49 Patient weight: normal Lungs: normal air movement Airway: Mallampati scale Last oral intake: >/= 8 hours ASA classification: I Emergent: no Anesthetic plan: proceed Anesthesia type and monitoring: general GIVS and standard monitoring Results Review: All pre-operative results and documents have been reviewed as part of the pre-operative evaluation. Healthy, pt active w yoga, no cp or sob. Informed Consent: The patient's anesthetic plan and its attendant risks and benefits were discussed with the patient/family/POA. Questions were solicited and answers provided to the satisfaction of the patient/family/POA.
--- NOTE | 2024-12-30 10:04 | PM.HPGS ---
History of Present Illness History of Present Illness Consent: Risks, benefits, and alternatives have been discussed and questions answered. Patient agrees to proceed with procedure. Chief complaint: colon screen Narrative: Cynthia Montoya is a 44 year old female here for first screening colonoscopy Review of Systems Review of Systems: All systems reviewed & are unremarkable except as noted in HPI and below PMFSH Past Medical History Medical History History of miscarriage x1 Portal vein thrombosis Thrombosis Anxiety Ovarian cyst Surgical History Surgical History H/O: hysterectomy History of endometrial ablation S/P laparoscopic procedure Previous section X3 History of bilateral tubal ligation H/O breast augmentation History of bowel resection Family History Family History Grandparent Carcinoma of colon Social History Social History Smoking status: Never smoker Alcohol intake: current Drinks per week: 3 Alcohol use details: once a week Substance use: never Substance use type: does not use Lack of Transportation: No Lack of Food: Never True Current Housing: I Have Housing Concerned About Future Housing: No Difficulty Paying Gas/Electric Bills: No Difficulty Paying for Meds: No Currently Unemployed: No Difficulty w/ Childcare or Family Care: Decline to Answer Living arrangements: with roommate(s) Additional living arrangements comments: CHILDREN Occupation/Education: other Gender identity (if verbalized by the patient): Female Sexual Orientation (if Verbalized by the Patient): Straight or Heterosexual Spiritual care concerns: No Meds Home Medications and Allergies Home Medications ?Medication ?Instructions ?Recorded ?Confirmed ?Type multivitamin (Daily Multi-Vitamin 1 tablet PO DAILY 01/22/22 12/30/24 History tablet) simethicone 125 mg capsule 125 mg PO QID PRN gas #120 caps 04/02/24 12/24/24 Rx Allergies Allergy/AdvReac Type Severity Reaction Status Date / Time amoxicillin Allergy Unknown Unknown Verified 12/30/24 09:21 Vital Signs Vital Signs - 24 hr 12/30/24 09:22 Temperature 97 F L Pulse Rate 69 Respiratory Rate 18 Blood Pressure 140/92 H Pulse Oximetry 100 Oxygen Delivery Room Air Exam Const: General: comfortable and no acute distress HENMT: Face/Nose/Sinus: Normal nares present Eyes: General: appearance normal, both eyes and all related structures Neck: Neck: no JVD Resp: Auscultation: clear to auscultation bilaterally Cardio: Rate: regular rate Rhythm: regular rhythm GI: Inspection: non-distended GI Palp: Yes Soft to palpation Skin: General skin exam: normal color Neuro: General: gait normal Speech: normal speech Extrem: General: normal to inspection Psych: Mental Status: mental status grossly normal Assessment and Plan Assessment and plan (1) Colon cancer screening: Code(s): Z12.11 - Encounter for screening for malignant neoplasm of colon Status: Acute Assessment and Plan: colonoscopy
[2024-12-30 10:25] VITALS: BP 83/45; PULSE 71; RESP 16; O2SAT 100
[2024-12-30 10:35] VITALS: BP 88/52; PULSE 69; RESP 16; O2SAT 100
[2024-12-30 10:45] VITALS: BP 114/78; PULSE 61; RESP 15; O2SAT 100
== END 2024-12-30 11:10 | disposition home or self-care (01) ==
PROVIDERS: PCP Family Medicine; Referring Provider Family Medicine; Visit Provider Internal Medicine Gastroenterology
PROC: 0DJD8ZZ Inspection of Lower Intestinal Tract, Via Natural or Artificial Opening Endoscopic (ICD-10-PCS; CPT 45378; principal; 2024-12-30 10:30)
DX: Z12.11 Encounter for screening for malignant neoplasm of colon (principal); K57.30 Diverticulosis of large intestine without perforation or abscess without bleeding; K64.8 Other hemorrhoids; Z98.0 Intestinal bypass and anastomosis status; Z90.49 Acquired absence of other specified parts of digestive tract
CPT/HCPCS: 45378; J2003; J2704; J7120

== ENCOUNTER 2025-06-01 15:53 | Outpatient (CLI) | payer OTHER, SELFPAY ==
--- NOTE | ~2025-06-01 | US_ITS ---
EXAMINATION: US pelvic complete, 06/01/2025 15:30 CDT HISTORY: N83.201 - Unspecified ovarian cyst, right side Comparison: Comparison 11/16/2021. Technique: Muse-scale and color Doppler images were obtained. Findings: Uterus: Post hysterectomy. . Right Ovary:Right ovary measures 6 x 2.1 x 5 cm, there is a complex appearing cystic lesion measuring 3.1 x 3.1 cm, no solid adnexal mass. Left Ovary: Left ovary surgically absent. Free Fluid: None Impression: Complex cystic right ovarian lesion possibly a functional cyst. Six-week follow- up recommended to assess resolution Reviewed, dictated and finalized at location P. Impression: Complex cystic right ovarian lesion possibly a functional cyst. Six-week follow -up recommended to assess resolution
== END 2025-06-01 15:54 | disposition home or self-care (01) ==
PROVIDERS: PCP Family Medicine; Visit Provider Family Medicine
DX: N83.201 Unspecified ovarian cyst, right side (principal)
CPT/HCPCS: 76856

== ENCOUNTER 2025-07-13 15:02 | Outpatient (CLI) | payer OTHER, SELFPAY ==
--- NOTE | ~2025-07-13 | US_ITS ---
EXAM/PROCEDURE: US transvaginal HISTORY: N83.201 - Unspecified ovarian cyst, right side COMPARISON: June 01, 2025 TECHNIQUE: Pelvic ultrasound FINDINGS: Previously described 3.1 cm complex cystic lesion in the right ovary measures 2.6 x 2.4 x 2.2 cm on today's exam. The remainder of the right ovary appears normal. No free fluid is seen. Uterus and left ovary not seen consistent with previous removal. No free fluid seen. IMPRESSION: Decreased size of complex cystic mass in the right ovary consistent with benign lesion. Follow-up pelvic ultrasound in 6-8 weeks recommended to confirm benignity. Reviewed, dictated and finalized at location A. HYSICAL LABORATORY SUPERVISOR IMPRESSION: Decreased size of complex cystic mass in the right ovary consistent with benign lesion. Follow-up pelvic ultrasound in 6-8 weeks recommended to confirm benign ity.
== END 2025-07-13 15:03 | disposition home or self-care (01) ==
PROVIDERS: PCP Family Medicine; Visit Provider Family Medicine
DX: N83.291 Other ovarian cyst, right side (principal)
CPT/HCPCS: 76830